=== PATIENT | female | born 1940 | race African-American/Black ===

== ENCOUNTER 2023-03-04 17:28 | Observation (INO) | payer MEDICARE, MEDICAID, SELFPAY ==
[2023-03-04] VITALS (16 sets, daily range): BP systolic 147–239; BP diastolic 72–110; PULSE 80–93; RESP 16–18; TEMP 36.5–36.6; O2SAT 97–100; BMI 40.3; BMI 43.7
--- NOTE | ~2023-03-04 | XR_ITS ---
EXAMINATION: XR chest 1V DATE: 03/04/2023 20:40 INDICATION: Fall TECHNIQUE: frontal view of the chest was obtained. COMPARISON: None FINDINGS: The lungs are clear with no focal airspace opacities, pulmonary edema, pleural effusion or pneumothor ax. Cardiomegaly. Moderate-sized hiatal hernia. Mild lower thoracic levocurvature with at least mild spondylosis. IMPRESSION: 1. No acute cardiopulmonary disease. 2. Cardiomegaly. 3. Moderate-sized hiatal hernia. Reviewed, dictated and finalized at location A.
--- NOTE | ~2023-03-04 | CT_ITS ---
EXAMINATION: CT knee RT wo con DATE: 03/04/2023 20:35 INDICATION: Right knee pain and inability to bear weight post fall. TECHNIQUE: High resolution computed tomography (CT) of the right knee was performed without intraveno us contrast. Additional sagittal and coronal reconstructions were performed. Automated exposure contr ol and iterative reconstruction technique were employed. The dose-length product was 512.46 mGy-cm. COMPARISON: Right knee radiographs dated 03/04/2023 FINDINGS: Slight genu varus resulting from the severe joint space narrowing in the medial compartment with some remodeling of the articular surface of the medial tibial plateau. No traumatic malalignment. No evid ent fracture. There is moderate osteoarthritis of the lateral compartment and large marginal ossified swelling the patella and moderate size marginal osteophytes along the trochlea consistent with at le ast mild osteoarthritis. Moderate-sized hemarthrosis at the suprapatellar pouch but without evident l ayering fat component to suggest an occult intra-articular fracture. Subcutaneous edema about the kd f and visualized proximal calf. IMPRESSION: 1. Moderate-sized right knee hemarthrosis but without evident fracture or layering fat level to sugge st an occult intra-articular fracture. 2. 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 Reviewed, dictated and finalized at location A. IMPRESSION: 1. Moderate-sized right knee hemarthrosis but without evident fracture or layer ing fat level to suggest an occult intra-articular fracture. 2. Advanced medial compartment predominant tricompartmental osteoarthritis at t he right knee.
--- NOTE | ~2023-03-04 | XR_ITS ---
EXAMINATION: XR ankle RT 2V DATE: 03/04/2023 18:29 INDICATION: Right ankle injury post fall TECHNIQUE: Anteroposterior and lateral views of the right ankle were obtained. COMPARISON: None. FINDINGS: Alignment is normal. No fracture. Profiled joint spaces appear relatively preserved. Small plantar ca lcaneal spur. Prominent soft tissue swelling about the ankle, visualized distal lower leg and extendi ng over the dorsum of the foot. No ankle joint effusion. IMPRESSION: 1. No right ankle joint effusion or acute osseous abnormality. Reviewed, dictated and finalized at location A.
--- NOTE | ~2023-03-04 | XR_ITS ---
EXAMINATION: XR knee RT 3V DATE: 03/04/2023 18:30 INDICATION: Right knee injury post fall TECHNIQUE: Anteroposterior, oblique and crosstable lateral views of the right knee were obtained COMPARISON: None. FINDINGS: Alignment is normal. No fracture. There is severe joint space narrowing at the medial compartment wi th remodeling of the articular surface of the medial tibial plateau. There is also some joint space n arrowing at the medial side of the lateral compartment. Large marginal osteophytes along the patella. There is a moderate sized right knee joint effusion without layering lipohemarthrosis. Subcutaneous edema about the knee and visualized proximal to mid calf. IMPRESSION: 1. Moderate-sized right knee joint effusion without evident acute osseous abnormality. 2. Tricompartmental osteoarthritis, advanced medial compartment. Reviewed, dictated and finalized at location A. IMPRESSION: 1. Moderate-sized right knee joint effusion without evident acute osseous abnor mality. 2. Tricompartmental osteoarthritis, advanced medial compartment.
--- NOTE | 2023-03-04 20:21 | ECG_ITS ---
Measurements Intervals [place] Rate: 91 P: 56 MA: 151 QRS: -17 QRSD: 81 T: -15 QT: 353 QTc: 436 Interpretive Statements SINUS RHYTHM POSSIBLE RIGHT ATRIAL ENLARGEMENT LEFT VENTRICULAR HYPERTROPHY AND ST-T CHANGE BORDERLINE T WAVE ABNORMALITY- ANTEROLAT/INF LEADS BASELINE ARTIFACT- I, II, AVR, AVL, AVF, V2-V6 BORDERLINE ECG NO PREVIOUS ECG AVAILABLE FOR COMPARISON Electronically Signed On 03-05-2023 6:55:10 CDT by Poncho Mata D.O.
[2023-03-04] MEDS: HYDROcodone/acetaminophen (*CRX) 5-325 MG TABLET 2 TAB PO (20:44)
[2023-03-04 20:55] LABS: Glucose Point of Care 92 mg/dl (65-105)
[2023-03-04 21:06] LABS: Basophils Absolute Auto 0.1 K/mm3 (0.0-0.1); Basophils Percent Auto 0.7 % (0.2-1.2); Eosinophils Absolute Auto 0.1 K/mm3 (0-0.3); Eosinophils Percent Auto 1.6 % (0-4.4); Hematocrit 37.3 % (37.0-47.0); Hemoglobin 11.7 g/dL (12.0-15.0); Immature Granulocyte Absolute 0.04 K/mm3 (0.00-0.031); Immature Granulocyte Percent A 0.5 % (0-0.5); Lymphocytes Absolute Auto 1.73 K/mm3 (0.9-3.2); Lymphocytes Percent Auto 21.2 % (18.3-44.2); Mean Corpuscular HGB Conc 31.4 g/dl (32-36); Mean Corpuscular Hemoglobin 31.9 pg (26-34); Mean Corpuscular Volume 101.6 fl (80-100); Mean Platelet Volume 10.2 fl (7.4-10.4); Monocytes Percent Auto 12.2 % (2.6-8.5); Neutrophils Absolute Auto 5.2 K/mm3 (1.3-6.7); Neutrophils Percent Auto 63.8 % (45.5-73.1); Nucleated Red Blood Cells Perc 0.4 % (0.0-0.2); Platelet Count Result 268 k/mm3 (150-375); Red Blood Count 3.67 M/mm3 (4.2-5.4); Red Cell Distribution Width 15.5 % (11.5-14.5); White Blood Count 8.2 K/mm3 (4.5-10.0)
[2023-03-04 21:20] LABS: Anion Gap 8 mmol/L (8-16); Blood Urea Nitrogen 15 mg/dL (7-17); Carbon Dioxide 27 mmol/L (22-30); Chloride 105 mmol/L (98-107); Estimated CRCL calculation 52 ml/min; Estimated Glomerular Filt Rate > 60; Glucose 103 mg/dL (65-110); Potassium 4.6 mmol/L (3.4-5.0); Sodium 140 mmol/L (137-145)
--- NOTE | 2023-03-04 21:21 | ED.GENADULT ---
HPI - General Adult General Chief complaint: Extremity Injury, Lower Stated complaint: fall with right knee pain - bilateral LE edema Time Seen by Provider: 03/04/23 19:30 History of Present Illness HPI narrative: This is an 82-year-old female presenting ED with chief complaint of right knee pain. The patient walks with a walker at home. She was trying to sit on her sofa when she sat down too soon. She ended up falling to her knees and then rolling over onto her buttocks. She has been having pain in her right knee since then. She has been unable to bear weight. She denies head trauma or any other injuries. No other physical complaints. Patient lives alone and is unable to complete her activities of daily living due to pain. Related Data Allergies Allergy/AdvReac Type Severity Reaction Status Date / Time azithromycin Allergy Anaphylaxis Verified 03/04/23 19:40 Penicillins Allergy Hives Verified 03/04/23 19:40 COUNT INCLUDES THE [facility] Past Medical History Medical History Gout HTN (hypertension) Obesity Exam Narrative: APPEARANCE: No apparent distress. Head: atraumatic. EYES: EOMI, NOSE: Atraumatic NECK: Trachea midline RESPIRATORY: No increased rate of breathing , CTAB CARDIOVASCULAR: RRR, ABDOMINAL: obese, soft, nontender MUSCULOSKELETAl: Physical exam lower extremities is limited due to body habitus. Patient has pain on active and passive range of motion of the knee. Possibly a small effusion. No overlying skin changes. neurovascularly intact distal to the knee. NEURO: Alert. Moving 4/4 extremities SKIN:: Warm, dry. Normal color PSYCHIATRIC: Normal affect Course Vital Signs Vital signs: Vital Signs Temperature 97.7 F 03/04/23 17:54 Pulse Rate 93 03/04/23 17:54 Respiratory Rate 18 03/04/23 17:54 Blood Pressure 147/86 H 03/04/23 17:54 Pulse Oximetry 98 03/04/23 17:54 Oxygen Delivery Room Air 03/04/23 17:54 Temperature 97.7 F 03/04/23 17:54 Pulse Rate 93 03/04/23 17:54 Respiratory Rate 16 03/04/23 21:00 Blood Pressure 239/110 H 03/04/23 20:47 Pulse Oximetry 97 03/04/23 20:45 Oxygen Delivery Room Air 03/04/23 17:54 Medical Decision Making [facility] Narrative Medical decision making narrative: -Course: 82-year-old female presenting with knee pain after a fall. Initial x-ray did not reveal any fractures. CT was ordered to evaluate for occult fracture but was negative. There is a small effusion. Patient is unable to bear weight and lives at home alone. She will be omitted for PT OT and possible rehab placement. -DDX includes but is not limited to: Osseous injury, soft tissue injury, knee effusion, inability to ambulate -Co-morbidities complicating care: obesity, impaired mobility, hypertension, gout -Social determinants of health: retired, lives alone -Hx from independent Sources: family at bedside -Independent interpretation of studies: laboratory studies within normal limits. X-ray and CT were negative for fracture but did show a joint effusion. Viral swabs negative. Chest x-ray showed cardiomegaly but no respiratory distress or dyspnea at this time. Independent EKG interpretation: Rhythm [sinus], Rate [91], [place] -[normal], [place] -[normal], QRS [narrow], QTC [normal], T waves -[negative for concerning inversions], ST Segments - [Negative for concerning elevations] Final interpretations: [Normal Sinus Rhythm] -Discussion of Management/Consultants: Dr. Be-hospitalist Interventions: [place] 5mg x 2 -Shared decision making / Disposition: discharge Vital Signs Vital Signs: Vital Signs Temperature 97.7 F 03/04/23 17:54 Pulse Rate 93 03/04/23 17:54 Respiratory Rate 18 03/04/23 17:54 Blood Pressure 147/86 H 03/04/23 17:54 Pulse Oximetry 98 03/04/23 17:54 Oxygen Delivery Room Air 03/04/23 17:54 Temperature 97.7 F 03/04/23 17:54 Pulse Rate 93 03/04/23 17:54 Respiratory Rate 16
[2023-03-04 21:41] LABS: Influenza A QL RT-PCR Negative (Negative); Influenza B QL RT-PCR Negative (Negative); RSV RNA, RT-PCR Negative (Negative); SARS-CoV-2 RNA PCR Negative (Negative)
--- NOTE | 2023-03-04 21:57 | PM.IMHP ---
H&P: HPI History of Present Illness Date/Time: 03/04/23 21:57 Chief Complaint: Fall Narrative: This is an 82-year-old female with past medical history significant for hypertension, obesity, patient was brought to the emergency room after she had a mechanical fall at home ground level with trauma to the right knee unable to bear weight on it. Patient has been in her usual state of health denies any loss of consciousness. Patient denies any syncope, near syncope, lightheadedness, dizziness, nausea, vomiting, abdominal pain, diarrhea, shortness of breath, cough, leg swelling, sputum production, recurrent falls. Preliminary workup was significant for large knee effusion. Patient has been admitted for further evaluation management and treatment. EXAMINATION: CT knee RT wo con DATE: 03/04/2023 20:35 INDICATION: Right knee pain and inability to bear weight post fall. TECHNIQUE: High resolution computed tomography (CT) of the right knee was performed without intravenous contrast. Additional sagittal and coronal reconstructions were performed. Automated exposure control and iterative reconstruction technique were employed. The dose-length product was 512.46 mGy-cm. COMPARISON: Right knee radiographs dated 03/04/2023 FINDINGS: Slight genu varus resulting from the severe joint space narrowing in the medial compartment with some remodeling of the articular surface of the medial tibial plateau. No traumatic malalignment. No evident fracture. There is moderate osteoarthritis of the lateral compartment and large marginal ossified swelling the patella and moderate size marginal osteophytes along the trochlea consistent with at least mild osteoarthritis. Moderate-sized hemarthrosis at the suprapatellar pouch but without evident layering fat component to suggest an occult intra-articular fracture. Subcutaneous edema about the calf and visualized proximal calf. IMPRESSION: 1. Moderate-sized right knee hemarthrosis but without evident fracture or layering fat level to suggest an occult intra-articular fracture. 2. 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 Review of Systems Review of Systems: Fall Constitutional: Constitutional: Denies chills, Denies fatigue, Denies fever(s), Denies frequent falls, Denies malaise, Denies night sweats and Denies weakness Eyes: Eyes: Denies change in vision ENT: Denies dysphagia, Denies vertigo, Denies dizziness, Denies odynophagia and Denies disequilibrium Cardiovascular: Cardiovascular: Denies chest pain, Denies leg edema, Denies radiating jaw, neck or arm pain and Denies palpitations Respiratory: Respiratory: Denies chest congestion, Denies cough and Denies dyspnea Gastrointestinal: Gastrointestinal: Denies abdominal pain, Denies dyspepsia, Denies heartburn, Denies diarrhea and Denies vomiting Genitourinary: Genitourinary: Denies dysuria Musculoskeletal: Musculoskeletal: Reports arthralgias ( knee), Reports joint swelling and Reports limited range of motion Integumentary/Breasts: Skin/Breast: Denies rash Neurologic: Denies focal weakness and Denies Sensory deficit (Neuro) Psychiatric: Psychiatric: Reports no additional psychiatric complaints and Reports as per HPI Endocrine: Endocrine: Denies cold intolerance, Denies fatigue, Denies flushing, Denies heat intolerance, Denies polyphagia, Denies polydipsia and Denies palpitations Hematologic/Lymphatic: Hematologic/Lymphatic: Reports no additional hematologic/lymphatic complaints and Reports as per HPI Allergic/Immunologic: Allergic/Immunologic: Reports no additional allergic/immunologic complaints and Reports as per HPI PMFSH Past Medical History Medical History Gout HTN (hypertension) Obesity Family History Family History (Updated 03/04/23 @ 23:22 by Ac Covington RN) Father Hypertension Cerebrovascular accident Mother Hypertension
--- NOTE | 2023-03-04 22:14 | PC.NURSE ---
This RN attempted to get a urine specimen from pt. Pt was unable to provide a sample into the hat this rn and refinery technician provided for her. EDp made aware that speciman was not collected.
--- NOTE | 2023-03-04 23:04 | ADMGEN ---
This patient, Henna Hogan, was admitted to Medical Room 244-. Patient/family oriented to hospital policies and general routines including ID bracelet, bed and alarms, visiting hours, pain management, procedures, bathroom and other care routines, personal items, smoking policy, room service/diet, and visiting hours. Information on how to activate the Rapid Response Team has been discussed. Patient/Family are encouraged to report perceived risks to care and to ask questions if they do not understand what they are told or what they should do.
[2023-03-05 00:48] LABS: Appearance Urine Cloudy (Clear); Bacteria Urine Rare /hpf; Bilirubin Urine Negative (Negative); Blood Urine Negative (Negative); Color Urine Yellow (Yellow); Glucose Urine UA Negative (Negative); Ketones Urine Negative (Negative); Leukocyte Esterase Ur Negative LEU/UL (Negative); Need Manual Microscopic Reviewed; Nitrate Urine Negative (Negative); Non Pathogenic Casts 0-2; Protein Urine Negative (Negative); RBC Urine 0-2 /hpf (0-2); Specific Grav Ur 1.009 (1.001-1.035); Squamous Epithelial Cell Urine Occasional /hpf (Few); Urobilinogen Urine 0.2 mg/dL (<2.0); WBC Urine 0-5 /hpf
[2023-03-05 00:56] LABS: Add Urine Microscopic? YES
[2023-03-05 02:00] VITALS: BP 130/71; PULSE 85; RESP 20; TEMP 35.9; O2SAT 98
[2023-03-05 04:42] VITALS: BP 148/76; PULSE 83; RESP 16; TEMP 36.3; O2SAT 100
[2023-03-05] MEDS: GABAPENTIN 100 MG CAPSULE PO ×3 (08:18→16:37)
[2023-03-05] MEDS: ATORVASTATIN 40 MG TABLET PO (08:18)
[2023-03-05] MEDS: PANTOPRAZOLE 40 MG TABLET PO (08:18)
[2023-03-05] MEDS: allopurinoL 100 MG TABLET PO (08:18)
[2023-03-05] MEDS: dilTIAZem HCL 30 MG TABLET PO (08:18)
[2023-03-05] MEDS: HEPARIN SODIUM 5,000 UNITS/ML VIAL 5000 UNITS SUB-Q ×2 (08:19→21:40)
--- NOTE | 2023-03-05 08:53 | PM.IMPN ---
Progress Note: A&P Assessment and Plan (1) Fall: Code(s): W19.XXXA - Unspecified fall, initial encounter Status: Acute Assessment and Plan: Fall precautions Monitor closely Physical therapy when stable (2) Knee pain: Code(s): M25.569 - Pain in unspecified knee Status: Acute Assessment and Plan: Tylenol p.r.n. Ortho consult (3) Impaired ambulation: Code(s): R26.2 - Difficulty in walking, not elsewhere classified Status: Acute Assessment and Plan: PT OT (4) HTN (hypertension): Code(s): I10 - Essential (primary) hypertension Status: Acute Assessment and Plan: resume home meds Stable on current meds Subjective Date/time seen: 03/05/23 08:53 Interval history: Patient was seen during morning rounds today. Complain of his right knee pain. No shortness of breath or chest pain. No abdominal pain, nausea, no vomiting. Mood stable. Review of Systems Review of Systems: Fall All systems reviewed & are unremarkable except as noted in HPI and below (the history and physical exam.) Constitutional: Constitutional: Denies chills, Denies fatigue, Denies fever(s), Denies frequent falls, Denies malaise, Denies night sweats and Denies weakness Eyes: Eyes: Denies change in vision ENT: Denies dysphagia, Denies vertigo, Denies dizziness, Denies odynophagia and Denies disequilibrium Cardiovascular: Cardiovascular: Denies chest pain, Denies leg edema, Denies radiating jaw, neck or arm pain, Denies palpitations and Denies dyspnea Respiratory: Respiratory: Denies chest congestion, Denies cough and Denies dyspnea Gastrointestinal: Gastrointestinal: Denies abdominal pain, Denies dysphagia, Denies dyspepsia, Denies heartburn, Denies diarrhea, Denies odynophagia and Denies vomiting Genitourinary: Genitourinary: Denies dysuria Musculoskeletal: Musculoskeletal: Reports arthralgias ( knee), Reports joint swelling and Reports limited range of motion Integumentary/Breasts: Skin/Breast: Denies rash Neurologic: Denies vertigo, Denies dizziness, Denies frequent falls, Denies focal weakness, Denies Sensory deficit (Neuro), Denies disequilibrium and Denies weakness Psychiatric: Psychiatric: Reports no additional psychiatric complaints and Reports as per HPI Endocrine: Endocrine: Denies cold intolerance, Denies fatigue, Denies flushing, Denies heat intolerance, Denies polyphagia, Denies polydipsia and Denies palpitations Hematologic/Lymphatic: Hematologic/Lymphatic: Reports no additional hematologic/lymphatic complaints and Reports as per HPI Allergic/Immunologic: Allergic/Immunologic: Reports no additional allergic/immunologic complaints and Reports as per HPI Exam Narrative: laying in bed comfortably Const: General: comfortable, no acute distress, well developed, alert, awake, average body habitus and obese Nutritional Appearance: average body habitus and obese Orientation/consciousness: patient oriented x3 HENMT: Head: normal to inspection, normocephalic and atraumatic Ears: hearing grossly normal bilaterally Face/Nose/Sinus: normal facial exam Face and sinus: normal facial exam Eyes: General: appearance normal, both eyes and all related structures Pupils: Equal, round and reactive pupils present EOM: EOMs intact bilaterally Neck: Neck: full ROM, no lymphadenopathy and no JVD Thyroid: thyroid normal Lymphatic: no lymphadenopathy noted Resp: Effort & Inspection: normal respiratory effort and able to speak in complete sentences Auscultation: clear to auscultation bilaterally Cardio: Jugular venous distension: no JVD Rate: regular rate Rhythm: regular rhythm Heart sounds: S1 normal heart sound present and S2 normal heart sound present : General: Yes deferred Skin: Rashes: no rashes Wounds: no wounds Neuro: General: patient oriented x3, CN's II-XI intact bilaterally and Unable to assess gait Cranial nerves: Yes CN's II-XII intact b
[2023-03-05 08:57] LABS: Glucose Point of Care 77 mg/dl (65-105)
[2023-03-05 11:55] LABS: Glucose Point of Care 101 mg/dl (65-105)
[2023-03-05 14:40] VITALS: BP 111/45; PULSE 78; RESP 16; O2SAT 100
[2023-03-05 15:08] LABS: Glucose Point of Care 123 mg/dl (65-105)
[2023-03-05 20:11] VITALS: BP 110/75; PULSE 95; RESP 16; TEMP 36.9; O2SAT 99
[2023-03-05] MEDS: ACETAMINOPHEN 500 MG TABLET 1000 MG PO (21:35)
[2023-03-05 23:16] VITALS: O2SAT 99
[2023-03-06] VITALS (9 sets, daily range): BP systolic 101–157; BP diastolic 67–104; PULSE 85–128; RESP 16–18; TEMP 36.7–36.9; O2SAT 98–100
--- NOTE | 2023-03-06 07:24 | PM.IMPN ---
Progress Note: A&P Assessment and Plan (1) Fall: Code(s): W19.XXXA - Unspecified fall, initial encounter Status: Acute Assessment and Plan: Fall precautions Physical therapy when stable (2) Knee pain: Code(s): M25.569 - Pain in unspecified knee Status: Acute Assessment and Plan: Ortho consultation in place. Imaging R knee: Moderate-sized right knee hemarthrosis but without evident fracture, tricompartmental OA. PT ordered. (3) Impaired ambulation: Code(s): R26.2 - Difficulty in walking, not elsewhere classified Status: Acute Assessment and Plan: PT/OT ordered. I have concerns for her ability to manage self care at home. Likely will require a short term rehabiliatory placement to complete therapy courses. Care coordination order placed to assist. (4) HTN (hypertension): Code(s): I10 - Essential (primary) hypertension Status: Acute Assessment and Plan: / this am. Will check orthostats prior to getting up today. Stable on current meds Plan Patient may not do well at home alone with current deficits. Consider placement for rehabilitation prior to home. Awaiting care coordination input. Time Spent With Patient Time: >35 minutes. Subjective Date/time seen: 03/06/23 07:24 Interval history: Henna states her pain is improved when resting but does still cause significant pain when moving around. Denies new complaints concerns. Review of Systems Review of Systems: Negative ROS across 10 systems unless otherwise mentioned. Exam Narrative: GENERAL APPEARANCE: Appears to be in no acute distress. HEAD: normocephalic atraumatic EYES: PERRL, EOMI. Vision grossly intact. ENT: Hearing grossly intact, no nasal discharge NECK: Neck supple, trachea midline. CARDIAC: Normal S1/S2. Rhythm is regular. No murmurs, rubs, or gallops. No cyanosis or pallor. Extremities are warm and well perfused. LUNGS: Clear to auscultation without rales, rhonchi, wheezing or diminished breath sounds. Respirations even and unlabored. ABDOMEN: Obese. BS positive x 4 quadrants. Soft, nondistended, nontender. No guarding or rebound. MSK: Right knee with pain to mild palpation over the tibial plateau PERIPHERAL VASCULAR: Peripheral pulses palpable. Normal perfusion, cap refill <2 seconds. No edema. NEURO: Follows commands. No focal deficits. SKIN: [place] without lesions or eruptions. PSYCH: Stable, no paranoia or delusional thinking. Objective Data Vital Signs Vital Signs: Vital Signs - 24 hr 03/05/23 08:08 03/05/23 14:24 03/05/23 14:40 Temperature Pulse Rate 78 Respiratory Rate 16 Blood Pressure 111/45 L Pulse Oximetry 100 Oxygen Delivery Room Air Room Air 03/05/23 20:11 03/05/23 23:16 03/06/23 04:42 Temperature 98.4 F 98.1 F Pulse Rate 95 85 Respiratory Rate 16 16 Blood Pressure 110/75 101/73 Pulse Oximetry 99 99 98 Oxygen Delivery Room Air Intake/Output Intake/Output: Intake & Output 03/03/23 03/04/23 03/05/23 03/06/23 23:59 23:59 23:59 23:59 Intake Total 1030 200 Output Total 1350 Balance -320 200 Meds/Results Medications: Active Medications Generic Name Dose Route Start Last Admin Trade Name Freq PRN Reason Stop Dose Admin Acetaminophen 1,000 mg 03/05/23 01:27 03/05/23 21:35 Acetaminophen 500 Mg Tablet PO 1,000 mg Q6H PRN Administration Mild Pain (1-3) or Fever Allopurinol 100 mg 03/05/23 08:00 03/05/23 08:18 Allopurinol 100 Mg Tablet PO 100 mg DAILY@0800 DARCIE Administration Atorvastatin Calcium 40 mg 03/05/23 09:00 03/05/23 08:18 Atorvastatin 40 Mg Tablet PO 40 mg DAILY DARCIE Administration Diltiazem HCl 30 mg 03/05/23 09:00 03/05/23 08:18 Diltiazem Hcl 30 Mg Tablet PO 30 mg DAILY DARCIE Administration Gabapentin 100 mg 03/05/23 09:00 03/05/23 16:37 Gabapentin 100 Mg Capsule PO 100 mg TID DARCIE Administration Heparin Sodium (Porcine)
[2023-03-06] MEDS: allopurinoL 100 MG TABLET PO (09:03)
[2023-03-06] MEDS: ATORVASTATIN 40 MG TABLET PO (09:03)
[2023-03-06] MEDS: GABAPENTIN 100 MG CAPSULE PO ×3 (09:03→16:48)
[2023-03-06] MEDS: HEPARIN SODIUM 5,000 UNITS/ML VIAL 5000 UNITS SUB-Q ×2 (09:04→21:22)
[2023-03-06] MEDS: PANTOPRAZOLE 40 MG TABLET PO (09:04)
[2023-03-06] MEDS: ACETAMINOPHEN 500 MG TABLET 1000 MG PO (12:15)
[2023-03-06 14:23] LABS: Glucose Point of Care 123 mg/dl (65-105)
--- NOTE | 2023-03-06 14:41 | ECG_ITS ---
Measurements Intervals [place] Rate: 87 P: 52 MN: 141 QRS: -16 QRSD: 86 T: 120 QT: 361 QTc: 436 Interpretive Statements SINUS RHYTHM LEFT VENTRICULAR HYPERTROPHY AND ST-T CHANGE BORDERLINE T WAVE ABNORMALITY- DIFFUSE LEADS BORDERLINE ECG COMPARED TO ECG 03/04/2023 20:51:28 NO SIGNIFICANT CHANGES Electronically Signed On 03-06-2023 19:37:48 CDT by Poncho Mata D.O.
[2023-03-07] VITALS (11 sets, daily range): BP systolic 136–154; BP diastolic 53–86; PULSE 79–94; RESP 14–19; TEMP 36.7–36.8; O2SAT 95–99
--- NOTE | 2023-03-07 | ECHO_ITS ---
Patient Info Name: Henna Hogan Age: 82 years : 1940 Gender: Female Ht: 65 in Wt: 262 lbs BSA: 2.40 m2 HR: 80 bpm BP: 154 / 86 mmHg Heart Rhythm: Sinus Rhythm Technical Quality: Fair Exam Date: 03/07/2023 10:17 AM [facility] Patient Status: Inpatient Admit Date: 03/04/2023 Staff Ordering Physician: Nasir Flores APRN Lsat Instructor: Sailaja Guardado RDCS Attending Provider: Gabbie Be MD Referring Physician: Mark BELLO; Exam Type: CA echo doppler color flow Study Info Indications - syncope Complete two-dimensional, color flow and Doppler transthoracic echocardiogram is performed. Summary 1. Complete two-dimensional, color flow and Doppler transthoracic echocardiogram is performed. 2. Technically difficult exam because of obesity. 3. Sclerotic aortic valve which is not stenotic. 4. Left ventricular hypertrophy with good systolic function and grade 1 diastolic noncompliance. 5. Modest left atrial enlargement. Left Ventricle Left ventricular chamber dimension is normal. Left ventricular systolic function is normal, estimated at 60-65%. There is mild concentric increased left ventricular wall thickness. The left ventricular diastolic function is grade I diastolic dysfunction. Right Ventricle Right ventricular chamber dimension is normal. Left Atria Left atrial chamber dimension is mildly enlarged. Right Atria Right atrial chamber dimension is normal. Aortic Valve The aortic valve is not well visualized. There is mild aortic valve sclerosis. There is no aortic valve stenosis. Pulmonic Valve The pulmonic valve is not well visualized. Mitral Valve The mitral valve has normal leaflets. Tricuspid Valve The tricuspid valve leaflets are not well visualized. Pericardium/Pleural The pericardium appears normal. Aorta The aortic root size at the sinus of Valsalva is normal. Left Ventricular Outflow Tract Name Value Normal LVOT 2D LVOT Diameter 2.0 cm LVOT Doppler LVOT Peak Gradient 5 mmHg LVOT Mean Gradient 3 mmHg LVOT VTI 22 cm LVOT VTI/AV VTI Ratio 0.9 LVOT Stroke Volume 66 ml LVOT CO 13.7 l/min LVOT CI 5.7 l/min/m2 Pulmonic Valve Name Value Normal PV Doppler PV Peak Gradient 3 mmHg Mitral Valve Name Value Normal MV Doppler MV Decel [place] 208 cm/s2 MV PHT 63 ms MV Area (PHT) 3.5 cm2 4.0-5.0
[2023-03-07] MEDS: allopurinoL 100 MG TABLET PO (09:01)
[2023-03-07] MEDS: PANTOPRAZOLE 40 MG TABLET PO (09:01)
[2023-03-07] MEDS: ATORVASTATIN 40 MG TABLET PO (09:01)
[2023-03-07] MEDS: HEPARIN SODIUM 5,000 UNITS/ML VIAL 5000 UNITS SUB-Q ×2 (09:01→20:27)
[2023-03-07] MEDS: GABAPENTIN 100 MG CAPSULE PO ×3 (09:01→18:19)
[2023-03-07] MEDS: dilTIAZem HCL 30 MG TABLET PO (09:01)
[2023-03-07] MEDS: ACETAMINOPHEN 500 MG TABLET 1000 MG PO ×2 (09:07→20:26)
--- NOTE | 2023-03-07 15:15 | P.PNIM_ITS ---
Progress Note: A&P Assessment and Plan (1) Near syncope: Code(s): R55 - Syncope and collapse Status: Acute Assessment and Plan: * Appears to have had a second episode while in the hospital * Orthostatic BP is laying 120/82, Sitting 138/104, Standing 138/76 * Chest xray is stable * Repeat EKG with no changes noted * Most likely vasovagal * Consider carotid doppler * Educate about slow movements and transition as it happens from the sit to stand * Activity up with assistance (2) Fall: Qualifiers: Encounter type: initial encounter Qualified Code(s): W19.XXXA - Unspecified fall, initial encounter Code(s): W19.XXXA - Unspecified fall, initial encounter Status: Acute Assessment and Plan: * Presented after a fall at home with knee trauma for sitting down too soon * PT/OT consulted * Fall precautions * up with assistance (3) Knee pain: Qualifiers: Chronicity: acute Laterality: right Qualified Code(s): M25.561 - Pain in right knee Code(s): M25.569 - Pain in unspecified knee Status: Acute Assessment and Plan: * Secondary to fall * CT of the right knee shows moderate sized right knee hemarthrosis without fracture * Ortho consulted * Weight bearing as tolerated * Continue with pain medications . (4) Impaired ambulation: Code(s): R26.2 - Difficulty in walking, not elsewhere classified Status: Acute Assessment and Plan: * PT/OT ordered. * Concerns for her ability to manage self care at home. * Consider SNF placement for rehab * Continue to work with patient (5) HTN (hypertension): Qualifiers: Hypertension type: primary hypertension Qualified Code(s): I10 - Essential (primary) hypertension Code(s): I10 - Essential (primary) hypertension Status: Acute Assessment and Plan: * Current BP is 154/86 * Continue home diltiazem 30mg PO Daily * Trend BP * Adjust therapy as indicated (6) Knee effusion, right: Code(s): M25.461 - Effusion, right knee Status: Acute Assessment and Plan: * Seen on the xray * Awaiting further recommendations from ortho * Continue to trend symptoms * Could possibly need drained Time Spent With Patient Time: 42 minutes Time with patient: Greater than 35 minutes Subjective Date/time seen: 03/07/230 Interval history: 09/11/23 1530 patient is lying in bed. Patient states that her knee is better than it was. She also stated that she was able stand today. She denies any current syncopal type feelings. Currently patient is doing okay. Still waiting for Orthopedics see the patient. 03/06/23 0724 Henna states her pain is improved when resting but does still cause significant pain when moving around. Denies new complaints concerns. 03/05/23? 08:53 Patient was seen during morning rounds today. Complain of his right knee pain. No shortness of breath or chest pain. No abdominal pain, nausea, no vomiting. Mood stable. 03/04/23? 21:57 ?This is an 82-year-old female with past medical history significant for hypertension, obesity, patient was brought to the emergency room after she had a mechanical fall at home ground level with trauma to the right
--- NOTE | 2023-03-07 15:15 | PM.IMPN ---
Progress Note: A&P Assessment and Plan (1) Near syncope: Code(s): R55 - Syncope and collapse Status: Acute Assessment and Plan: Appears to have had a second episode while in the hospital Orthostatic BP is laying 120/82, Sitting 138/104, Standing 138/76 Chest xray is stable Repeat EKG with no changes noted Most likely vasovagal Consider carotid doppler Educate about slow movements and transition as it happens from the sit to stand Activity up with assistance (2) Fall: Qualifiers: Encounter type: initial encounter Qualified Code(s): W19.XXXA - Unspecified fall, initial encounter Code(s): W19.XXXA - Unspecified fall, initial encounter Status: Acute Assessment and Plan: Presented after a fall at home with knee trauma for sitting down too soon PT/OT consulted Fall precautions up with assistance (3) Knee pain: Qualifiers: Chronicity: acute Laterality: right Qualified Code(s): M25.561 - Pain in right knee Code(s): M25.569 - Pain in unspecified knee Status: Acute Assessment and Plan: Secondary to fall CT of the right knee shows moderate sized right knee hemarthrosis without fracture Ortho consulted Weight bearing as tolerated Continue with pain medications . (4) Impaired ambulation: Code(s): R26.2 - Difficulty in walking, not elsewhere classified Status: Acute Assessment and Plan: PT/OT ordered. Concerns for her ability to manage self care at home. Consider SNF placement for rehab Continue to work with patient (5) HTN (hypertension): Qualifiers: Hypertension type: primary hypertension Qualified Code(s): I10 - Essential (primary) hypertension Code(s): I10 - Essential (primary) hypertension Status: Acute Assessment and Plan: Current BP is 154/86 Continue home diltiazem 30mg PO Daily Trend BP Adjust therapy as indicated (6) Knee effusion, right: Code(s): M25.461 - Effusion, right knee Status: Acute Assessment and Plan: Seen on the xray Awaiting further recommendations from ortho Continue to trend symptoms Could possibly need drained Time Spent With Patient Time: 42 minutes Time with patient: Greater than 35 minutes Subjective Date/time seen: 03/07/23 1530 Interval history: 03/07/23 1530 patient is lying in bed. Patient states that her knee is better than it was. She also stated that she was able stand today. She denies any current syncopal type feelings. Currently patient is doing okay. Still waiting for Orthopedics see the patient. 03/06/23 0724 Henna states her pain is improved when resting but does still cause significant pain when moving around. Denies new complaints concerns. 03/05/23? 08:53 Patient was seen during morning rounds today. Complain of his right knee pain. No shortness of breath or chest pain. No abdominal pain, nausea, no vomiting. Mood stable. 03/04/23? 21:57 ?This is an 82-year-old female with past medical history significant for hypertension, obesity, patient was brought to the emergency room after she had a mechanical fall at home ground level with trauma to the right knee unable to bear weight on it.? Patient has been in her usual state of health denies any loss of consciousness.? Patient denies any syncope, near syncope, lightheadedness, dizziness, nausea, vomiting, abdominal pain, diarrhea, shortness of breath, cough, leg swelling, sputum production, recurrent falls.? Preliminary workup was significant for large knee effusion.? Patient has been admitted for further evaluation management and treatment. Review of Systems Review of Systems: All systems reviewed & are unremarkable except as noted in HPI and below (the history and physical exam.) Exam Narrative: General: well-nou
[2023-03-08] VITALS (10 sets, daily range): BP systolic 146–159; BP diastolic 68–83; PULSE 74–115; RESP 16–18; TEMP 36.6–36.8; O2SAT 98–99
[2023-03-08 06:00] LABS: Basophils Absolute Auto 0.1 K/mm3 (0.0-0.1); Basophils Percent Auto 1.1 % (0.2-1.2); Eosinophils Absolute Auto 0.3 K/mm3 (0-0.3); Eosinophils Percent Auto 6.1 % (0-4.4); Hematocrit 29.5 % (37.0-47.0); Hemoglobin 9.2 g/dL (12.0-15.0); Immature Granulocyte Absolute 0.05 K/mm3 (0.00-0.031); Immature Granulocyte Percent A 0.9 % (0-0.5); Mean Corpuscular HGB Conc 31.2 g/dl (32-36); Mean Corpuscular Hemoglobin 31.7 pg (26-34); Mean Corpuscular Volume 101.7 fl (80-100); Mean Platelet Volume 10.5 fl (7.4-10.4); Monocytes Absolute Auto 0.7 K/mm3 (0.1-0.6); Monocytes Percent Auto 13.6 % (2.6-8.5); Neutrophils Absolute Auto 2.5 K/mm3 (1.3-6.7); Neutrophils Percent Auto 45.3 % (45.5-73.1); Nucleated Red Blood Cells Perc 0.4 % (0.0-0.2); Platelet Count Result 222 k/mm3 (150-375); Red Cell Distribution Width 15.3 % (11.5-14.5); White Blood Count 5.5 K/mm3 (4.5-10.0)
[2023-03-08 06:15] LABS: Alanine Aminotransferase 20 U/L (6-35); Alkaline Phosphatase 87 U/L (38-126); Anion Gap 3 mmol/L (8-16); Aspartate Amino Transferase 29 U/L (14-36); Bilirubin,Total 0.5 mg/dL (0.2-1.3); Blood Urea Nitrogen 15 mg/dL (7-17); Calcium 7.9 mg/dL (8.4-10.2); Carbon Dioxide 29 mmol/L (22-30); Chloride 106 mmol/L (98-107); Estimated CRCL calculation 50 ml/min; Estimated Glomerular Filt Rate > 60; Glucose 90 mg/dL (65-110); Magnesium 2.2 mg/dL (1.6-2.3); Sodium 138 mmol/L (137-145)
[2023-03-08] MEDS: GABAPENTIN 100 MG CAPSULE PO ×3 (08:14→17:22)
[2023-03-08] MEDS: PANTOPRAZOLE 40 MG TABLET PO (08:14)
[2023-03-08] MEDS: HEPARIN SODIUM 5,000 UNITS/ML VIAL 5000 UNITS SUB-Q ×2 (08:14→21:51)
[2023-03-08] MEDS: dilTIAZem HCL 30 MG TABLET PO (08:14)
[2023-03-08] MEDS: ATORVASTATIN 40 MG TABLET PO (08:14)
[2023-03-08] MEDS: allopurinoL 100 MG TABLET PO (08:14)
--- NOTE | 2023-03-08 10:00 | P.PNIM_ITS ---
Progress Note: A&P Assessment and Plan (1) Near syncope: Code(s): R55 - Syncope and collapse Status: Acute Assessment and Plan: * Appears to have had a second episode while in the hospital * Orthostatic BP is laying 120/82, Sitting 138/104, Standing 138/76 * Chest xray is stable * Repeat EKG with no changes noted * Most likely vasovagal * Consider carotid doppler * Educate about slow movements and transition as it happens from the sit to stand * Activity up with assistance * No further episodes noted (2) Fall: Qualifiers: Encounter type: initial encounter Qualified Code(s): W19.XXXA - Unspecified fall, initial encounter Code(s): W19.XXXA - Unspecified fall, initial encounter Status: Acute Assessment and Plan: * Presented after a fall at home with knee trauma for sitting down too soon * PT/OT consulted * Fall precautions * up with assistance (3) Knee pain: Qualifiers: Chronicity: acute Laterality: right Qualified Code(s): M25.561 - Pain in right knee Code(s): M25.569 - Pain in unspecified knee Status: Acute Assessment and Plan: * Secondary to fall * CT of the right knee shows moderate sized right knee hemarthrosis without fracture * Ortho consulted * Weight bearing as tolerated * Continue with pain medications * steroid injection ordered per ortho . (4) Impaired ambulation: Code(s): R26.2 - Difficulty in walking, not elsewhere classified Status: Acute Assessment and Plan: * PT/OT ordered. * Concerns for her ability to manage self care at home. * Consider SNF placement for rehab * Continue to work with patient * Steroid shot should help (5) HTN (hypertension): Qualifiers: Hypertension type: primary hypertension Qualified Code(s): I10 - Essential (primary) hypertension Code(s): I10 - Essential (primary) hypertension Status: Acute Assessment and Plan: * Current BP is 159/81 * Continue home diltiazem 30mg PO Daily * Trend BP * Adjust therapy as indicated (6) Knee effusion, right: Code(s): M25.461 - Effusion, right knee Status: Acute Assessment and Plan: * Seen on the xray * Awaiting further recommendations from ortho * Continue to trend symptoms * Could possibly need drained Time Spent With Patient Time: 38 minutes Time with patient: Greater than 35 minutes Subjective Date/time seen: 03/08/23 10:00 Interval history: 03/08/23 1000 Patient was sitting on the side the bed. Patient is wanting to get injection in her knee for pain control. Currently she denies any chest pain, shortness a breath, nausea, vomiting, diarrhea constipation. Orthopedics is going to come up and do the injection Sometime this evening. Patient should be stable for discharge tomorrow if placement is ready. 03/07/23 1530 patient is lying in bed. Patient states that her knee is better than it was. She also stated that she was able stand today. She denies any current syncopal type feelings. Currently patient is doing okay. Still waiting for Orthopedics see the patient. 03/06/23 0724 Henna states her pain is improved when resting but does still cause significant pain when moving a
--- NOTE | 2023-03-08 10:00 | PM.IMPN ---
Progress Note: A&P Assessment and Plan (1) Near syncope: Code(s): R55 - Syncope and collapse Status: Acute Assessment and Plan: Appears to have had a second episode while in the hospital Orthostatic BP is laying 120/82, Sitting 138/104, Standing 138/76 Chest xray is stable Repeat EKG with no changes noted Most likely vasovagal Consider carotid doppler Educate about slow movements and transition as it happens from the sit to stand Activity up with assistance No further episodes noted (2) Fall: Qualifiers: Encounter type: initial encounter Qualified Code(s): W19.XXXA - Unspecified fall, initial encounter Code(s): W19.XXXA - Unspecified fall, initial encounter Status: Acute Assessment and Plan: Presented after a fall at home with knee trauma for sitting down too soon PT/OT consulted Fall precautions up with assistance (3) Knee pain: Qualifiers: Chronicity: acute Laterality: right Qualified Code(s): M25.561 - Pain in right knee Code(s): M25.569 - Pain in unspecified knee Status: Acute Assessment and Plan: Secondary to fall CT of the right knee shows moderate sized right knee hemarthrosis without fracture Ortho consulted Weight bearing as tolerated Continue with pain medications steroid injection ordered per ortho . (4) Impaired ambulation: Code(s): R26.2 - Difficulty in walking, not elsewhere classified Status: Acute Assessment and Plan: PT/OT ordered. Concerns for her ability to manage self care at home. Consider SNF placement for rehab Continue to work with patient Steroid shot should help (5) HTN (hypertension): Qualifiers: Hypertension type: primary hypertension Qualified Code(s): I10 - Essential (primary) hypertension Code(s): I10 - Essential (primary) hypertension Status: Acute Assessment and Plan: Current BP is 159/81 Continue home diltiazem 30mg PO Daily Trend BP Adjust therapy as indicated (6) Knee effusion, right: Code(s): M25.461 - Effusion, right knee Status: Acute Assessment and Plan: Seen on the xray Awaiting further recommendations from ortho Continue to trend symptoms Could possibly need drained Time Spent With Patient Time: 38 minutes Time with patient: Greater than 35 minutes Subjective Date/time seen: 03/08/23 10:00 Interval history: 03/08/23 1000 Patient was sitting on the side the bed. Patient is wanting to get injection in her knee for pain control. Currently she denies any chest pain, shortness a breath, nausea, vomiting, diarrhea constipation. Orthopedics is going to come up and do the injection Sometime this evening. Patient should be stable for discharge tomorrow if placement is ready. 03/07/23 1530 patient is lying in bed. Patient states that her knee is better than it was. She also stated that she was able stand today. She denies any current syncopal type feelings. Currently patient is doing okay. Still waiting for Orthopedics see the patient. 03/06/23 0724 Henna states her pain is improved when resting but does still cause significant pain when moving around. Denies new complaints concerns. 03/05/23? 08:53 Patient was seen during morning rounds today. Complain of his right knee pain. No shortness of breath or chest pain. No abdominal pain, nausea, no vomiting. Mood stable. 03/04/23? 21:57 ?This is an 82-year-old female with past medical history significant for hypertension, obesity, patient was brought to the emergency room after she had a mechanical fall at home ground level with trauma to the right knee unable to bear weight on it.? Patient has been in her usual state of health denies any loss of consciousness.? Patient denies any syncope, near syncope, l
--- NOTE | 2023-03-08 16:29 | PM.CNOR ---
Assessment and Plan Assessment and plan (1) Knee effusion, right: Code(s): M25.461 - Effusion, right knee Status: Acute (2) Contusion of knee: Code(s): S80.00XA - Contusion of unspecified knee, initial encounter Status: Acute Assessment and Plan: MONICA IS ADMITTED FOR RIGHT KNEE CONTUSION. XRAY AND CT SCAN HAVE BEEN NEGATIVE FOR FRACTURE. SHE DOES HAVE MODERATE DJD. SHE DOES HAVE A LARGE EFFUSION. THE RIGHT KNEE WAS ASPIRATED AND 60cc OF HEMATOMA WERE REMOVED. MARCAINE WAS INJECTED. RECOMMEND CONTINUE PT WBAT. SHE CAN F/U IN THE OFFICE IF HER PAIN RETURNS OR DOES NOT IMPROVE. HISTORY, EXAM AND RADIOGRAPHS REVIEWED WITH THE PATIENT. REFERRING PHYSICIAN RECORDS AND IMAGES REVIEWED. CONDITION, NATURE, ETIOLOGY AND COURSE OF NATURAL HISTORY REVIEWED. CONSERVATIVE AND OPERATIVE TREATMENT OPTIONS REVIEWED WELL THE RISKS AND BENEFITS OF EACH. THE RISKS OF INJECTION WERE REVIEWED INCLUDING BUT NOT LIMITED TO SKIN COLOR CHANGES, ATROPHY OF THE SOFT TISSUE, TENDON OR SOFT TISSUE RUPTURE, JOINT DEGENERATION, HYPER INFLAMMATORY RESPONSE, ALLERGIC REACTION, CONTINUED PAIN OR DYSFUNCTION. SPECIFIC RISKS OF THE PROCEDURE INCLUDING DEEP INFECTION OR SOFT TISSUE RUPTURE OR RECURRENCE OF SYMPTOMS REVIEWED. NO GUARANTEES WERE OFFERED. THE PATIENT UNDERSTANDS THE NEED FOR POSSIBLE FURTHER TREATMENT. 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 SHE DENIES HAVING HAD ANY LOC OR SYNCOPAL EPISODE. SHE DENIES ANY SOB OR CHEST PAIN. SHE HAD INCREASED PAIN AND SWELLING AND WAS ADMITTED TO THE MEDICINE SERVICE AT [facility]. DUE TO HER PAIN AND DIFFICULTY WITH AMBULATION ORTHOPEDIC CONSULT WAS REQUESTED. SHE DENIES ANY OTHER EXTREMITY OR BACK OR NECK PAIN. SHE DENIES ANY FEVER OR CHILLS. HISTORY, EXAM AND RADIOGRAPHS REVIEWED WITH THE PATIENT. REFERRING PHYSICIAN RECORDS AND IMAGES REVIEWED. CONDITION, NATURE, ETIOLOGY AND COURSE OF NATURAL HISTORY REVIEWED. CONSERVATIVE AND OPERATIVE TREATMENT OPTIONS REVIEWED WELL THE RISKS AND BENEFITS OF EACH. [facility] Past Medical History Medical History Gout HTN (hypertension) Obesity Family History Family History Father Hypertension Cerebrovascular accident Mother Hypertension Social History Social History Smoking status: Never smoker Second hand tobacco smoke exposure: Yes Alcohol intake: former Drinks per week: 0 Substance use: never Lack of Transportation: No Lack of Food: Never True Current Housing: I Have Housing Concerned About Future Housing: No Difficulty Paying Gas/Electric Bills: No Difficulty Paying for Meds: No Currently Unemployed: No Education: High School Diploma/GED Difficulty w/ Childcare or Family Care: No Spiritual care concerns: No Meds Home Medications and Allergies Home Medications Medication Instructions Recorded Confirmed Type allopurinol 100 mg tablet 100 mg PO DAILY 03/04/23 03/04/23 History atorvastatin 40 mg tablet 40 mg PO DAILY 03/04/23 03/04/23 History diltiazem HCl 30 mg tablet 30 mg PO DAILY 03/04/23 03/04/23 History gabapentin 100 mg capsule 100 mg PO TID 03/04/23 03/04/23 History (Neurontin) pantoprazole 40 mg tablet,delayed 40 mg PO DAILY 03/04/23 03/04/23 History release Allergies Allergy/AdvReac Type Severity Reaction Status Date / Time azithromycin Allergy Anaphylaxis Verified 03/05/23 00:21 Penicillins Allergy Hives Verified 03/05/23 00:21 Vital Signs Vital Signs - 24 hr 03/07/23 19:43 03/07/23 20:00 03/07/23 20:20 Temperature 36.8 C Pulse Rate 93 93 Respirator
[2023-03-08] MEDS: ACETAMINOPHEN 500 MG TABLET 1000 MG PO ×2 (17:24→23:14)
[2023-03-09] VITALS: PULSE 82
[2023-03-09 04:00] VITALS: PULSE 71
[2023-03-09 05:33] LABS: Basophils Absolute Auto 0.1 K/mm3 (0.0-0.1); Basophils Percent Auto 1.3 % (0.2-1.2); Eosinophils Absolute Auto 0.3 K/mm3 (0-0.3); Eosinophils Percent Auto 4.7 % (0-4.4); Hematocrit 30.5 % (37.0-47.0); Hemoglobin 9.4 g/dL (12.0-15.0); Immature Granulocyte Absolute 0.05 K/mm3 (0.00-0.031); Immature Granulocyte Percent A 0.8 % (0-0.5); Lymphocytes Absolute Auto 1.91 K/mm3 (0.9-3.2); Lymphocytes Percent Auto 31.9 % (18.3-44.2); Mean Corpuscular HGB Conc 30.8 g/dl (32-36); Mean Corpuscular Hemoglobin 31.9 pg (26-34); Mean Corpuscular Volume 103.4 fl (80-100); Mean Platelet Volume 10.5 fl (7.4-10.4); Monocytes Absolute Auto 0.8 K/mm3 (0.1-0.6); Monocytes Percent Auto 13.2 % (2.6-8.5); Neutrophils Absolute Auto 2.9 K/mm3 (1.3-6.7); Neutrophils Percent Auto 48.1 % (45.5-73.1); Nucleated Red Blood Cells Perc 0.5 % (0.0-0.2); Platelet Count Result 232 k/mm3 (150-375); Red Blood Count 2.95 M/mm3 (4.2-5.4); Red Cell Distribution Width 15.1 % (11.5-14.5)
[2023-03-09 05:44] LABS: Alanine Aminotransferase 24 U/L (6-35); Alkaline Phosphatase 86 U/L (38-126); Anion Gap 3 mmol/L (8-16); Aspartate Amino Transferase 38 U/L (14-36); Bilirubin,Total 0.6 mg/dL (0.2-1.3); Blood Urea Nitrogen 17 mg/dL (7-17); Carbon Dioxide 29 mmol/L (22-30); Chloride 106 mmol/L (98-107); Estimated CRCL calculation 50 ml/min; Estimated Glomerular Filt Rate > 60; Glucose 80 mg/dL (65-110); Magnesium 2.3 mg/dL (1.6-2.3); Sodium 138 mmol/L (137-145)
[2023-03-09 05:45] VITALS: BP 131/53; PULSE 80; RESP 18; TEMP 36.4; O2SAT 100
[2023-03-09 08:00] VITALS: PULSE 80
[2023-03-09] MEDS: ATORVASTATIN 40 MG TABLET PO (08:38)
[2023-03-09] MEDS: GABAPENTIN 100 MG CAPSULE PO ×2 (08:38→12:37)
[2023-03-09] MEDS: PANTOPRAZOLE 40 MG TABLET PO (08:38)
[2023-03-09] MEDS: allopurinoL 100 MG TABLET PO (08:38)
[2023-03-09] MEDS: dilTIAZem HCL 30 MG TABLET PO (08:39)
[2023-03-09 08:43] VITALS: RESP 18; O2SAT 100
[2023-03-09] MEDS: HEPARIN SODIUM 5,000 UNITS/ML VIAL 5000 UNITS SUB-Q (08:43)
--- NOTE | 2023-03-09 11:39 | PM.DS ---
DS: Admitting Diagnosis Discharge Date 03/09/23 Admitting Diagnosis Fall, right knee pain DS: Discharge Diagnosis Discharge Diagnosis (1) Near syncope: Code(s): R55 - Syncope and collapse Status: Acute (2) Fall: Qualifiers: Encounter type: initial encounter Qualified Code(s): W19.XXXA - Unspecified fall, initial encounter Code(s): W19.XXXA - Unspecified fall, initial encounter Status: Acute (3) Knee pain: Qualifiers: Chronicity: acute Laterality: right Qualified Code(s): M25.561 - Pain in right knee Code(s): M25.569 - Pain in unspecified knee Status: Acute (4) Impaired ambulation: Code(s): R26.2 - Difficulty in walking, not elsewhere classified Status: Acute (5) HTN (hypertension): Qualifiers: Hypertension type: primary hypertension Qualified Code(s): I10 - Essential (primary) hypertension Code(s): I10 - Essential (primary) hypertension Status: Acute (6) Knee effusion, right: Code(s): M25.461 - Effusion, right knee Status: Acute DS: Summary Hospital Course Hospital Course: this is a 2-year-old female with past medical history of hypertension and morbid obesity the presents to the ED due to ground level fall and right knee pain. She did not have any loss of consciousness, syncope, near syncope, lightheadedness or dizziness. Right knee radiographs revealing a moderate size right knee ang arthrosis without evidence of fracture. PT and OT consulted as well as Orthopedics. Patient was found to have positive orthostatics while in the hospital and she was advised to move very slowly with her movements and transition. She did not have any difficulties after this 1 incident. Orthopedics recommended patient undergo steroid injection of her right knee. Post injection patient did well and knee pain improved. Patient will be discharge to SNF. Labs and vital signs are stable and she is medically clear for discharge at this time Time Spent with Patient Time attestation: Total time spent providing and/or coordinating discharge services: Exam Narrative: GENERAL: Comfortable, no acute distress, morbid obesity HENMT: moist mucous membranes EYES: EOM intact b/l NECK: no lymphadenopathy RESPIRATORY: clear to auscultation CARDIO: RRR GI: soft, nontender, bowel sounds present SKIN: no rashes EXTREMITIES: no edema, redness or tenderness DS: Data Data Completed and Pending Labs on day of discharge: Labs from last 24 hours 03/09/23 03/09/23 05:00 04:50 WBC 6.0 RBC 2.95 L Hgb 9.4 L Hct 30.5 L MCV 103.4 H MCH 31.9 MCHC 30.8 L RDW 15.1 H Plt Count 232 MPV 10.5 H Immature Gran % (Auto) 0.8 H Neut % (Auto) 48.1 Lymph % (Auto) 31.9 [place] % (Auto) 13.2 H Eos % (Auto) 4.7 H Baso % (Auto) 1.3 H Lymph # (Auto) 1.91 [place] # (Auto) 0.8 H Eos # (Auto) 0.3 Baso # (Auto) 0.1 Abs Immat Gran (auto) 0.05 H Absolute Neuts (auto) 2.9 Absolute Nucleated RBC 0.0 Nucleated RBC % 0.5 H Sodium 138 Potassium 4.0 Chloride 106 Carbon Dioxide 29 Anion Gap 3 L BUN 17 Creatinine 1.00 Estim Creat Clear Calc 50 Estimated GFR > 60 Glucose 80 Calcium 8.0 L Magnesium 2.3 Total Bilirubin 0.6 AST 38 H ALT 24 Alkaline Phosphatase 86 Total Protein 6.0 L Albumin 3.0 L Discharge Plan Discharge Attending physician on discharge: Milad Olivas Consulting providers: Naseem Wilde Discharging Clinician: Gail Hayden Patient Disposition: SNF Activity: as tolerated Diet: diabetic Discharge Instructions: Discharge disposition: Take medications as prescribed Monitor blood pressures Avoid social areas, you wear a mask when in social settings Encouraged to continue with yearly vaccinations Return to the emergency department if he developed sudden shortness of breath, chest pain, nausea, vomiting, upset
[2023-03-09 12:00] VITALS: PULSE 77
== END 2023-03-09 14:35 ==
LOC: ANHED 19:55 → ANH2MED 22:20
PROVIDERS: Nurse Practitioner; Admitting Provider Internal Medicine; Emergency Provider Emergency Medicine; Visit Provider Hospitalist
DX: R55 Syncope and collapse (principal); M25.061 Hemarthrosis, right knee; S80.01XA Contusion of right knee, initial encounter; S99.911A Unspecified injury of right ankle, initial encounter; W18.39XA Other fall on same level, initial encounter; R26.2 Difficulty in walking, not elsewhere classified; Z99.89 Dependence on other enabling machines and devices; K44.9 Diaphragmatic hernia without obstruction or gangrene; Z20.822 Contact with and (suspected) exposure to COVID-19; I11.9 Hypertensive heart disease without heart failure; M10.9 Gout, unspecified; M17.11 Unilateral primary osteoarthritis, right knee; I35.8 Other nonrheumatic aortic valve disorders; E66.9 Obesity, unspecified; Z68.41 Body mass index [BMI] 40.0-44.9, adult; M25.471 Effusion, right ankle; Z77.22 Contact with and (suspected) exposure to environmental tobacco smoke (acute) (chronic); Z79.899 Other long term (current) drug therapy
CPT/HCPCS: 36415; 71045; 73562; 73600; 73700; 80048; 80053; 81001; 82948; 83735; 85025; 87637; 93005; 93306; 96372; 97110; 97163; 97165; 97530; 97535; 99285; A9270; G0378; J1644

== ENCOUNTER 2023-04-04 17:48 | Emergency (ER) | payer MEDICARE, MEDICAID, SELFPAY ==
--- NOTE | ~2023-04-04 | XR_ITS ---
EXAMINATION: XR chest 2V Exam Date/Time: 04/04/2023 18:17 CDT HISTORY: Weakness Comparison: 03/04/2023. RESULT: Lines, tubes, and devices: None. Lungs and pleura: Clear. Cardiomediastinal silhouette: Stable. Moderate hiatal hernia. Other: No acute osseous or upper abdominal finding. IMPRESSION: No acute cardiopulmonary process. Reviewed, dictated and finalized at location K.
--- NOTE | ~2023-04-04 | CT_ITS ---
EXAMINATION: CT brain wo con DATE: 04/04/2023 19:48 INDICATION: syncope . TECHNIQUE: Computed tomography (CT) of the head was performed without intravenous contrast. The mA wa s adjusted according to patient size. Iterative reconstruction technique was employed. The dose-lengt h product was 605.33 mGy-cm. COMPARISON: None. FINDINGS: No acute intracranial hemorrhage or extra-axial fluid collection. No hydrocephalus, mass, or herniation. No acute ischemic infarct. Unremarkable dural venous sinus attenuation. No acute osseous abnormality. The aerated spaces are clear. Mild atrophy and chronic white matter change. Atherosclerotic intracranial calcification. Empty sella . IMPRESSION: No acute intracranial process. Reviewed, dictated and finalized at location K.
[2023-04-04 17:45] VITALS: BP 168/82; PULSE 86; RESP 14; TEMP 36.7; O2SAT 98
--- NOTE | 2023-04-04 17:54 | ECG_ITS ---
Measurements Intervals [place] Rate: 81 P: 52 [place]: 148 QRS: -12 QRSD: 78 T: 9 QT: 365 QTc: 424 Interpretive Statements SINUS RHYTHM MINIMAL VOLTAGE CRITERIA FOR LVH, CONSIDER NORMAL VARIANT [MEETS CRITERIA IN ONE OF: R(aVL), S(V1), R(V5), R(V5/V6)+S(V1)] COMPARED TO ECG 03/06/2023 14:52:14 NO SIGNIFICANT CHANGES Electronically Signed On 04-05-2023 15:54:55 CDT by Cris Casas M.D.
[2023-04-04 18:08] LABS: Basophils Absolute Auto 0.1 K/mm3 (0.0-0.1); Basophils Percent Auto 0.9 % (0.2-1.2); Eosinophils Absolute Auto 0.1 K/mm3 (0-0.3); Eosinophils Percent Auto 1.3 % (0-4.4); Hematocrit 33.4 % (37.0-47.0); Hemoglobin 10.4 g/dL (12.0-15.0); Lymphocytes Absolute Auto 1.33 K/mm3 (0.9-3.2); Lymphocytes Percent Auto 13.9 % (18.3-44.2); Mean Corpuscular HGB Conc 31.1 g/dl (32-36); Mean Corpuscular Hemoglobin 31.8 pg (26-34); Mean Corpuscular Volume 102.1 fl (80-100); Mean Platelet Volume 9.7 fl (7.4-10.4); Monocytes Percent Auto 10.1 % (2.6-8.5); Neutrophils Percent Auto 72.8 % (45.5-73.1); Nucleated Red Blood Cells Absolute Auto 0.1 K/mm3 (0.0-0.012); Nucleated Red Blood Cells Perc 0.6 % (0.0-0.2); Platelet Count Result 279 k/mm3 (150-375); Red Blood Count 3.27 M/mm3 (4.2-5.4); Red Cell Distribution Width 15.6 % (11.5-14.5); White Blood Count 9.6 K/mm3 (4.5-10.0)
[2023-04-04 18:16] LABS: Alanine Aminotransferase 22 U/L (6-35); Albumin Level 3.6 g/dL (3.5-5.1); Alkaline Phosphatase 116 U/L (38-126); Anion Gap 5 mmol/L (8-16); Aspartate Amino Transferase 33 U/L (14-36); Bilirubin,Total 0.7 mg/dL (0.2-1.3); Blood Urea Nitrogen 20 mg/dL (7-17); Calcium 8.7 mg/dL (8.4-10.2); Carbon Dioxide 30 mmol/L (22-30); Chloride 102 mmol/L (98-107); Estimated CRCL calculation 37 ml/min; Estimated Glomerular Filt Rate 44; Glucose 107 mg/dL (65-110); Potassium 4.5 mmol/L (3.4-5.0); Sodium 137 mmol/L (137-145)
[2023-04-04 19:16] VITALS: BP 168/115; PULSE 83; RESP 25; O2SAT 98
[2023-04-04 20:55] LABS: Add Urine Microscopic? NO; Appearance Urine Clear (Clear); Bilirubin Urine Negative (Negative); Blood Urine Negative (Negative); Color Urine Yellow (Yellow); Glucose Urine UA Negative (Negative); Ketones Urine Negative (Negative); Leukocyte Esterase Ur Negative LEU/UL (Negative); Nitrate Urine Negative (Negative); Protein Urine Negative (Negative); Urobilinogen Urine 0.2 mg/dL (<2.0)
--- NOTE | 2023-04-04 21:26 | ED.GENADULT ---
HPI - General Adult General Chief complaint: Weakness Stated complaint: dizzy/weak Time Seen by Provider: 04/04/23 19:08 History of Present Illness HPI narrative: Patient presents to the emergency department after syncopal event at rehab. Family states this is the third time it is happened during her stay there. Normally occurs after she has been active during therapy. Today event was longer and she was found unresponsive by staff. She denies history of this happening prior to going to rehab. When patient was living at home she ambulated with a walker. Then she fell and ended up with a large knee effusion. She has been in rehab strengthening her legs to be able to go home Related Data Home Medications Medication Instructions Recorded Confirmed allopurinol 100 mg tablet 100 mg PO DAILY 03/04/23 03/04/23 atorvastatin 40 mg tablet 40 mg PO DAILY 03/04/23 03/04/23 diltiazem HCl 30 mg tablet 30 mg PO DAILY 03/04/23 03/04/23 gabapentin 100 mg capsule 100 mg PO TID 03/04/23 03/04/23 (Neurontin) pantoprazole 40 mg tablet,delayed 40 mg PO DAILY 03/04/23 03/04/23 release acetaminophen 325 mg tablet (Pain mg 04/04/23 04/04/23 Reliever (acetaminophen)) Allergies Allergy/AdvReac Type Severity Reaction Status Date / Time azithromycin Allergy Anaphylaxis Verified 03/05/23 00:21 Penicillins Allergy Hives Verified 03/05/23 00:21 Review of Systems Review of Systems: Review of systems negative except for what is documented in the [facility] Past Medical History Medical History Gout HTN (hypertension) Obesity Family History Family History Father Hypertension Cerebrovascular accident Mother Hypertension Social History Social History Smoking status: Never smoker Second hand tobacco smoke exposure: Yes Alcohol intake: former Drinks per week: 0 Substance use: never Lack of Transportation: No Lack of Food: Never True Current Housing: I Have Housing Concerned About Future Housing: No Difficulty Paying Gas/Electric Bills: No Difficulty Paying for Meds: No Currently Unemployed: No Education: High School Diploma/GED Difficulty w/ Childcare or Family Care: No Spiritual care concerns: No Exam Narrative: GENERAL: Well-appearing, well-nourished, and in no acute distress. HEAD: Normocephalic, atraumatic. EYES: PERRLA and EOMI. ENT: Nares clear, no rhinorrhea or epistaxis. Mucous membranes moist. NECK: Supple. CHEST: Clear to auscultation. No respiratory distress. HEART: Regular rate and rhythm. ABDOMEN: Soft, nontender, nondistended. EXTREMITIES: Normal range of motion. No edema. SKIN: Warm, dry, no rash. NEURO: No focal deficits. Alert and oriented x3. PSYCH: Normal mood and affect. Course Course Emergency Course: Differential diagnosis includes but not limited to electrolyte abnormality, dehydration, urinary tract infection, cardiac arrhythmia, acute infection telemetry ordered due to syncope to evaluate for dysrhythmias. Evaluated by myself. Rhythm NSR Rate 78 2 1:31 PM urinalysis negative. Electrolytes unremarkable. Creatinine elevated to 1.4 from baseline of 0.9. Chest x-ray no infiltrates. Head CT no signs of ischemia or hemorrhage. Vital Signs Vital signs: Vital Signs Temperature 36.7 C 04/04/23 17:45 Pulse Rate 86 04/04/23 17:45 Respiratory Rate 14 04/04/23 17:45 Blood Pressure 168/82 H 04/04/23 17:45 Pulse Oximetry 98 04/04/23 17:45 Oxygen Delivery Room Air 04/04/23 17:45 Temperature 36.7 C 04/04/23 17:45 Pulse Rate 83 04/04/23 19:16 Respiratory Rate 25 H 04/04/23 19:16 Blood Pressure 168/115 H 04/04/23 19:16 Pulse Oximetry 98 04/04/23 19:16 Oxygen Delivery Room Air 04/04/23 17:45 Medical Decision Making MDM Narrative Medical decision
[2023-04-04] MEDS: SODIUM CHLORIDE 0.9% IV 1,000 ML 999 ML IV CONT (21:45)
[2023-04-05 00:16] VITALS: BP 165/112; PULSE 78; RESP 17; O2SAT 100
[2023-04-05 00:26] VITALS: BP 165/112; PULSE 78; RESP 17; O2SAT 100
== END 2023-04-05 00:48 ==
PROVIDERS: Student in an Organized Health Care Education/Training Program; Emergency Provider Emergency Medicine
DX: E86.0 Dehydration (principal); N28.9 Disorder of kidney and ureter, unspecified; I10 Essential (primary) hypertension
CPT/HCPCS: 36415; 70450; 71046; 80053; 81003; 85025; 93005; 96360; 96361; 99284; J7030

== ENCOUNTER 2023-05-02 19:04 | Observation (INO) | payer MEDICARE, MEDICAID, SELFPAY ==
--- NOTE | ~2023-05-02 | MR_ITS ---
MRI of the lumbar spine Clinical History: Cauda equina syndrome Technique: Axial T2-weighted images, and sagittal T1-weighted, T2-weighted, and T2 fat-sat images wer e acquired. Findings: There is no fracture or subluxation of the lumbar spine. Vertebral bodies maintain normal h eight and alignment. There are reactive marrow signal changes about the L5-S1 disc space due to under lying degenerative disc disease. At L1-L2 and L2-L3, there is no disc bulge or herniation. Minimal facet joint degenerative change pre sent. No spinal canal stenosis or neural foraminal narrowing at these levels. At L3-L4, there is minimal disc bulge with moderate facet arthropathy. No central canal stenosis or n eural foraminal narrowing. At L4-L5, diffuse disc bulge and severe facet arthropathy result in moderate central canal stenosis/t hecal sac compression. Neural foramina are preserved bilaterally. At L5-S1, there is disc bulge with moderate facet arthropathy. No bharati central canal stenosis. There is moderate to severe right neural foraminal narrowing, and minimal left neural foraminal narrowing. Paravertebral soft tissues are unremarkable. Impression: Moderate degenerative spondylosis at L4-L5 and L5-S1, as detailed above. Reviewed, dictated and finalized at location . 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
--- NOTE | ~2023-05-02 | XR_ITS ---
EXAMINATION: XR chest 1V portable Exam Date/Time: 05/02/2023 19:27 ZONING ENGINEER HISTORY: weakness, BILATERAL LEG SWELLING Comparison: 04/04/2023. RESULT: Lines, tubes, and devices: None. Lungs and pleura: Clear. Cardiomediastinal silhouette: Stable. Other: No acute osseous or upper abdominal finding. IMPRESSION: No acute cardiopulmonary process. Reviewed, dictated and finalized at location K. NG ENGINEER
[2023-05-02 19:01] VITALS: BP 138/64; PULSE 93; RESP 14; TEMP 36.6; O2SAT 99
--- NOTE | 2023-05-02 19:08 | ECG_ITS ---
Measurements Intervals Thayer Rate: 80 P: 37 RI: 145 QRS: -20 QRSD: 89 T: 10 QT: 358 QTc: 414 Interpretive Statements SINUS RHYTHM VOLTAGE CRITERIA FOR LVH BORDERLINE R WAVE PROGRESSION, ANTERIOR LEADS NONSPECIFIC T-WAVE ABNORMALITY- INF/HIGH LAT LEADS BORDERLINE ECG COMPARED TO ECG 04/04/2023 17:59:39 NO SIGNIFICANT CHANGES Electronically Signed On 05-02-2023 19:35:06 [employer]LL SHOP SUPERVISOR by Poncho Mata D.O.
--- NOTE | 2023-05-02 19:29 | ED.GENADULT ---
HPI - General Adult General Chief complaint: Weakness Stated complaint: GEN WKNS, BLE EDEMA Time Seen by Provider: 05/02/23 19:08 History of Present Illness HPI narrative: This is an 82-year-old female presenting ED for general weakness. Patient had a fall in early February. After several days in the hospital she was sent to a senior living for rehab. She had done well there until she went home 1 week ago. Since then the patient has been having significant difficulty walking. She typically walks with a walker. She says that her legs are too heavy. She feels that they are swollen. The patient lives alone but has been getting help from her daughter and family. she does note some dyspnea on exertion. She denies any recent falls chest pain abdominal pain urinary problems or GI issues. Related Data Home Medications Medication Instructions Recorded Confirmed allopurinol 100 mg tablet 100 mg PO DAILY 03/04/23 03/04/23 atorvastatin 40 mg tablet 40 mg PO DAILY 03/04/23 03/04/23 diltiazem HCl 30 mg tablet 30 mg PO DAILY 03/04/23 03/04/23 gabapentin 100 mg capsule 100 mg PO TID 03/04/23 03/04/23 (Neurontin) pantoprazole 40 mg tablet,delayed 40 mg PO DAILY 03/04/23 03/04/23 release acetaminophen 325 mg tablet (Pain mg 04/04/23 04/04/23 Reliever (acetaminophen)) Allergies Allergy/AdvReac Type Severity Reaction Status Date / Time azithromycin Allergy Anaphylaxis Verified 05/02/23 19:46 Penicillins Allergy Hives Verified 05/02/23 19:46 [facility] Past Medical History Medical History Gout HTN (hypertension) Obesity Family History Family History Father Hypertension Cerebrovascular accident Mother Hypertension Social History Social History Smoking status: Never smoker Second hand tobacco smoke exposure: Yes Alcohol intake: former Drinks per week: 0 Substance use: never Lack of Transportation: No Lack of Food: Never True Current Housing: I Have Housing Concerned About Future Housing: No Difficulty Paying Gas/Electric Bills: No Difficulty Paying for Meds: No Currently Unemployed: No Education: High School Diploma/GED Difficulty w/ Childcare or Family Care: No Spiritual care concerns: No Exam Narrative: APPEARANCE: No apparent distress. Head: atraumatic. EYES: EOMI, NOSE: Atraumatic NECK: Trachea midline RESPIRATORY: No increased rate of breathing, clear to auscultation CARDIOVASCULAR: RRR, Nonpitting edema of the lower extremities ABDOMINAL: Non-distended, obese, soft nontender MUSCULOSKELETAl: No obvious deformities NEURO: Alert. Moving 4/4 extremities SKIN:: Warm, dry. Normal color PSYCHIATRIC: Normal affect Course Vital Signs Vital signs: Vital Signs Temperature 98 F 05/02/23 19:01 Pulse Rate 93 05/02/23 19:01 Respiratory Rate 14 05/02/23 19:01 Blood Pressure 138/64 05/02/23 19:01 Pulse Oximetry 99 05/02/23 19:01 Oxygen Delivery Room Air 05/02/23 19:01 Temperature 98 F 05/02/23 19:01 Pulse Rate 93 05/02/23 19:01 Respiratory Rate 14 05/02/23 19:01 Blood Pressure 138/64 05/02/23 19:01 Pulse Oximetry 99 05/02/23 19:01 Oxygen Delivery Room Air 05/02/23 19:01 Medical Decision Making MDM Narrative Medical decision making narrative: -Course: 82-year-old female presenting to ED with difficulty ambulating at home. Workup was unremarkable. patient lives alone but is no longer capable of performing her activities of daily living/walking. She will be admitted to the hospital for PT OT eval/placement. -DDX includes but is not limited to: Dehydration, pneumonia, heart failure, lymphedema, peripheral edema, dependent edema, debility -Co-morbidities complicating care: morbid obesity, arthritis, gout, hypertension, neuropathy -Social determinants o
[2023-05-02 20:00] VITALS: BP 128/89; PULSE 86; RESP 15; O2SAT 99
[2023-05-02 20:00] LABS: Basophils Absolute Auto 0.1 K/mm3 (0.0-0.1); Basophils Percent Auto 0.9 % (0.2-1.2); Eosinophils Absolute Auto 0.2 K/mm3 (0-0.3); Eosinophils Percent Auto 2.9 % (0-4.4); Hematocrit 33.5 % (37.0-47.0); Hemoglobin 10.1 g/dL (12.0-15.0); Immature Granulocyte Absolute 0.06 K/mm3 (0.00-0.031); Immature Granulocyte Percent A 0.9 % (0-0.5); Lymphocytes Absolute Auto 1.53 K/mm3 (0.9-3.2); Lymphocytes Percent Auto 23.5 % (18.3-44.2); Mean Corpuscular HGB Conc 30.1 g/dl (32-36); Mean Corpuscular Volume 102.8 fl (80-100); Mean Platelet Volume 10.4 fl (7.4-10.4); Monocytes Absolute Auto 0.8 K/mm3 (0.1-0.6); Monocytes Percent Auto 12.6 % (2.6-8.5); Neutrophils Absolute Auto 3.8 K/mm3 (1.3-6.7); Neutrophils Percent Auto 59.2 % (45.5-73.1); Nucleated Red Blood Cells Absolute Auto 0.1 K/mm3 (0.0-0.012); Nucleated Red Blood Cells Perc 1.1 % (0.0-0.2); Platelet Count Result 302 k/mm3 (150-375); Red Blood Count 3.26 M/mm3 (4.2-5.4); Red Cell Distribution Width 16.3 % (11.5-14.5); White Blood Count 6.5 K/mm3 (4.5-10.0)
[2023-05-02 20:02] LABS: Alanine Aminotransferase 21 U/L (6-35); Albumin Level 3.8 g/dL (3.5-5.1); Alkaline Phosphatase 88 U/L (38-126); Anion Gap 4 mmol/L (8-16); Aspartate Amino Transferase 45 U/L (14-36); Bilirubin,Total 0.8 mg/dL (0.2-1.3); Blood Urea Nitrogen 20 mg/dL (7-17); Calcium 8.8 mg/dL (8.4-10.2); Carbon Dioxide 29 mmol/L (22-30); Chloride 107 mmol/L (98-107); Estimated CRCL calculation 51 ml/min; Estimated Glomerular Filt Rate > 60; Glucose 107 mg/dL (65-110); Potassium 4.3 mmol/L (3.4-5.0); Sodium 140 mmol/L (137-145)
[2023-05-02 20:09] LABS: NT Pro B Type Natriuretic Pept 380 pg/mL (19.9-100)
[2023-05-02 21:02] LABS: Add Urine Microscopic? YES; Appearance Urine Clear (Clear); Bacteria Urine None Seen /hpf; Bilirubin Urine Negative (Negative); Blood Urine Negative (Negative); Color Urine Dark Yellow (Yellow); Glucose Urine UA Negative (Negative); Hyaline Casts Urine Present /lpf; Ketones Urine Trace mg/dL (Negative); Leukocyte Esterase Ur Negative LEU/UL (Negative); Nitrate Urine Negative (Negative); Protein Urine Trace mg/dL (Negative); Specific Grav Ur 1.035 (1.001-1.035); Squamous Epithelial Cell Urine None seen /hpf (Few); WBC Urine 0-5 /hpf; pH Urine 5.5 (5.0-9.0)
[2023-05-02 22:00] VITALS: BP 139/86; PULSE 88; RESP 22; O2SAT 99
--- NOTE | 2023-05-02 22:06 | PM.IMHP ---
H&P: HPI History of Present Illness Date/Time: 05/02/23 22:06 Chief Complaint: Generalized weakness Narrative: This is an 82-year-old female with past medical history significant for gout, hypertension, morbid obesity. Patient recently discharged from [facility] comes to the emergency room due to generalized weakness unable to walk. Patient denies any fevers, rigors, chills, nausea, vomiting, cough, sputum production, pain or burning with urination, chest pain, shortness of breath, PND, orthopnea. Preliminary workup has been essentially nonrevealing. EXAMINATION:? XR chest 1V portable Exam Date/Time:? 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 Comparison:? 04/04/2023. RESULT: Lines, tubes, and devices:? None. Lungs and pleura:? Clear. Cardiomediastinal silhouette:? Stable. Other:? No acute osseous or upper abdominal finding. ? IMPRESSION: No acute cardiopulmonary process. Review of Systems Review of Systems: Generalized weakness, unable to walk Constitutional: Constitutional: Denies chills, Denies fever(s) and Reports weakness Eyes: Eyes: Denies change in vision ENT: Denies dysphagia and Denies odynophagia Cardiovascular: Cardiovascular: Denies chest pain, Denies radiating jaw, neck or arm pain and Denies palpitations Respiratory: Respiratory: Denies cough and Denies dyspnea Gastrointestinal: Gastrointestinal: Denies abdominal pain, Denies dyspepsia, Denies heartburn, Denies diarrhea, Denies nausea and Denies vomiting Genitourinary: Genitourinary: Denies dysuria Musculoskeletal: Musculoskeletal: Reports muscle weakness Integumentary/Breasts: Skin/Breast: Denies rash Neurologic: Denies focal weakness and Denies Sensory deficit (Neuro) Psychiatric: Psychiatric: Reports no additional psychiatric complaints and Reports as per HPI Endocrine: Endocrine: Denies cold intolerance, Denies flushing, Denies heat intolerance, Denies polyphagia, Denies polydipsia and Denies palpitations Hematologic/Lymphatic: Hematologic/Lymphatic: Reports no additional hematologic/lymphatic complaints and Reports as per HPI Allergic/Immunologic: Allergic/Immunologic: Reports no additional allergic/immunologic complaints and Reports as per HPI PMFSH Past Medical History Medical History Gout HTN (hypertension) Obesity Family History Family History Father Hypertension Cerebrovascular accident Mother Hypertension Social History Social History Smoking status: Never smoker Second hand tobacco smoke exposure: Yes Alcohol intake: never Drinks per week: 0 Substance use: never Lack of Transportation: No Lack of Food: Never True Current Housing: I Have Housing Concerned About Future Housing: No Difficulty Paying Gas/Electric Bills: No Difficulty Paying for Meds: No Currently Unemployed: No Education: Grade School Difficulty w/ Childcare or Family Care: No Spiritual care concerns: No Meds Home Medications and Allergies Home Medications Medication Instructions Recorded Confirmed Type allopurinol 100 mg tablet 200 mg PO DAILY 03/04/23 05/03/23 History atorvastatin 40 mg tablet 40 mg PO QPM 03/04/23 05/03/23 History diltiazem HCl 30 mg tablet 30 mg PO DAILY 03/04/23 05/03/23 History gabapentin 100 mg capsule 100 mg PO TID 03/04/23 05/03/23 History (Neurontin) pantoprazole 40 mg tablet,delayed 40 mg PO DAILY 03/04/23 05/03/23 History release Allergies Allergy/AdvReac Type Severity Reaction Status Date / Time azithromycin Allergy Anaphylaxis Verified 05/02/23 19:46 Penicillins Allergy Hives Verified 05/02/23 19:46 Vital Signs Vital Signs - 24 hr 05/02/23 19:01 Temperature 98 F Pulse Rate 93 Respiratory Rate 14 Blood Pressure 138/64 Pulse Oximetry 99 Oxygen Delivery R
[2023-05-03] VITALS: BP 150/80; PULSE 85; RESP 22; O2SAT 98
[2023-05-03 00:33] VITALS: BMI 41.5
[2023-05-03 00:38] VITALS: BP 143/57; PULSE 85; RESP 18; TEMP 36.2; O2SAT 99
--- NOTE | 2023-05-03 02:31 | ADMGEN ---
This patient, Henna Hogan, was admitted to 3 Med Surg Room 306-02. Patient/family oriented to hospital policies and general routines including ID bracelet, bed and alarms, visiting hours, pain management, procedures, bathroom and other care routines, personal items, smoking policy, room service/diet, and visiting hours. Information on how to activate the Rapid Response Team has been discussed. Patient/Family are encouraged to report perceived risks to care and to ask questions if they do not understand what they are told or what they should do.
[2023-05-03 06:00] VITALS: BP 139/90; PULSE 91; RESP 18; TEMP 36.9; O2SAT 99
[2023-05-03 08:00] VITALS: O2SAT 99
--- NOTE | 2023-05-03 12:00 | PM.IMPN ---
Progress Note: A&P Assessment and Plan (1) Adult failure to thrive: Code(s): R62.7 - Adult failure to thrive Status: Acute Assessment and Plan: Admit to regular medical floor PT/OT consult, care coord c/s Patient will likely need placement at a detention Check MRI lumbar to r/o nerve impingement/cauda equina/disc pathology causing spinal cord compression, etc (2) Lymphedema: Code(s): I89.0 - Lymphedema, not elsewhere classified Status: Acute Assessment and Plan: Unchanged (3) Right knee DJD: Code(s): M17.11 - Unilateral primary osteoarthritis, right knee Status: Acute Assessment and Plan: Tylenol p.r.n. (4) HTN (hypertension): Qualifiers: Hypertension type: primary hypertension Qualified Code(s): I10 - Essential (primary) hypertension Code(s): I10 - Essential (primary) hypertension Status: Acute Assessment and Plan: Blood pressure reviewed 05/03 Continue home medications Plan DVT prophylaxis with SCDs GI prophylaxis with PPI Code status full code Subjective Date/time seen: 05/03/23 12:00 Interval history: 82-year-old female with history of gout, hypertension, obesity, recently discharged from a nursing facility presenting with generalized weakness currently being treated for failure to thrive and likely placement. No overnight events noted. No chest pain or shortness of breath. No nausea, vomiting or diarrhea. No fevers or chills. She is c/o progressively worsening LE weakness, numbness and tingling over the last 2 weeks. Denies bowel/bladder changes, no saddle anesthesia. Review of Systems Review of Systems: 12 point review of systems was assessed and was negative except as noted in the HPI Exam Narrative: General: No acute distress, alert and oriented per baseline HEENT: Atraumatic, normocephalic, mucous membranes moist CV: Regular rate and rhythm, S1, S2 Lungs: Clear to auscultation bilaterally, no rales or crackles noted, no wheezes, good air entry Abdomen: Soft, nontender, nondistended Extremities: Normal to inspection, significant lymphedema B/L LE Skin: No rashes noted, no lesions or wounds seen Psych: Euthymic, normal affect Objective Data Vital Signs Vital Signs: Vital Signs - 24 hr 05/02/23 19:01 05/02/23 20:00 05/02/23 20:00 Temperature 98 F Pulse Rate 93 86 86 Respiratory Rate 14 15 Blood Pressure 138/64 128/89 Pulse Oximetry 99 99 Oxygen Delivery Room Air 05/02/23 22:00 05/03/23 00:00 05/03/23 00:38 Temperature 97.2 F L Pulse Rate 88 85 85 Respiratory Rate 22 H 22 H 18 Blood Pressure 139/86 150/80 H 143/57 H Pulse Oximetry 99 98 99 Oxygen Delivery 05/03/23 02:27 05/03/23 06:00 05/03/23 08:00 Temperature 98.5 F Pulse Rate 91 Respiratory Rate 18 Blood Pressure 139/90 Pulse Oximetry 99 99 Oxygen Delivery Room Air Room Air Intake/Output Intake/Output: Intake & Output 05/01/23 05/01/23 05/02/23 05/03/23 00:59 23:59 23:59 23:59 Intake Total 240 Balance 240 Meds/Results Radiology Results: ITS Impressions Chest X-Ray 05/02/23 19:45 IMPRESSION: No acute cardiopulmonary process. Labs Labs: Laboratory Results - last 24 hr 05/02/23 05/02/23 05/02/23 19:45 19:45 19:45 WBC 6.5 RBC 3.26 L Hgb 10.1 L Hct 33.5 L MCV 102.8 H MCH 31.0 MCHC 30.1 L RDW 16.3 H Plt Count 302 MPV 10.4 Immature Gran % (Auto) 0.9 H Neut % (Auto) 59.2 Lymph % (Auto) 23.5 [place] % (Auto) 12.6 H Eos % (Auto) 2.9 Baso % (Auto) 0.9 Lymph # (Auto) 1.53 [place] # (Auto) 0.8 H Eos # (Auto) 0.2 Baso # (Auto) 0.1 Abs Immat Gran (auto) 0.06 H Absolute Neuts (auto) 3.8 Absolute Nucleated RBC 0.1 H Nucleated RBC % 1.1 H Sodium Cancelled 140 Potassium Cancelled 4.3 Chloride Cancelled Carbon Dioxide Anion Gap BUN Crea
[2023-05-03 13:57] VITALS: BP 142/89; PULSE 84; RESP 20; TEMP 35.6; O2SAT 99
[2023-05-03] MEDS: ATORVASTATIN 40 MG TABLET PO (16:30)
[2023-05-03] MEDS: GABAPENTIN 100 MG CAPSULE PO (16:30)
[2023-05-03 22:00] VITALS: BP 145/67; PULSE 84; RESP 14; TEMP 36.4; O2SAT 99
[2023-05-04 05:54] LABS: Basophils Absolute Auto 0.1 K/mm3 (0.0-0.1); Basophils Percent Auto 1.3 % (0.2-1.2); Eosinophils Absolute Auto 0.2 K/mm3 (0-0.3); Eosinophils Percent Auto 3.9 % (0-4.4); Hematocrit 33.3 % (37.0-47.0); Hemoglobin 10.1 g/dL (12.0-15.0); Immature Granulocyte Absolute 0.05 K/mm3 (0.00-0.031); Immature Granulocyte Percent A 0.9 % (0-0.5); Lymphocytes Absolute Auto 1.35 K/mm3 (0.9-3.2); Lymphocytes Percent Auto 25.2 % (18.3-44.2); Mean Corpuscular HGB Conc 30.3 g/dl (32-36); Mean Corpuscular Hemoglobin 31.1 pg (26-34); Mean Corpuscular Volume 102.5 fl (80-100); Mean Platelet Volume 10.1 fl (7.4-10.4); Monocytes Absolute Auto 0.7 K/mm3 (0.1-0.6); Monocytes Percent Auto 13.5 % (2.6-8.5); Neutrophils Percent Auto 55.2 % (45.5-73.1); Platelet Count Result 259 k/mm3 (150-375); Red Blood Count 3.25 M/mm3 (4.2-5.4); Red Cell Distribution Width 16.2 % (11.5-14.5); White Blood Count 5.4 K/mm3 (4.5-10.0)
[2023-05-04 06:00] VITALS: BP 129/50; PULSE 83; RESP 14; TEMP 36.1; O2SAT 95
[2023-05-04 06:15] LABS: Alanine Aminotransferase 18 U/L (6-35); Albumin Level 3.3 g/dL (3.5-5.1); Alkaline Phosphatase 95 U/L (38-126); Anion Gap 3 mmol/L (8-16); Aspartate Amino Transferase 27 U/L (14-36); Bilirubin,Total 0.8 mg/dL (0.2-1.3); Blood Urea Nitrogen 10 mg/dL (7-17); Calcium 8.5 mg/dL (8.4-10.2); Carbon Dioxide 28 mmol/L (22-30); Chloride 107 mmol/L (98-107); Estimated CRCL calculation 61 ml/min; Estimated Glomerular Filt Rate > 60; Glucose 85 mg/dL (65-110); Potassium 3.5 mmol/L (3.4-5.0); Sodium 138 mmol/L (137-145)
[2023-05-04 08:00] VITALS: O2SAT 95
[2023-05-04 08:08] LABS: Iron 46 ug/dL (37-170)
[2023-05-04 08:18] LABS: Percent Iron Saturation 18 % (20-50)
[2023-05-04] MEDS: allopurinoL 100 MG TABLET 200 MG PO (08:29)
[2023-05-04] MEDS: GABAPENTIN 100 MG CAPSULE PO ×3 (08:30→16:40)
[2023-05-04] MEDS: PANTOPRAZOLE 40 MG TABLET PO (08:30)
[2023-05-04] MEDS: dilTIAZem HCL 30 MG TABLET PO (08:30)
[2023-05-04 09:17] LABS: Folic Acid > 20.0 ng/mL (2.76->20)
--- NOTE | 2023-05-04 11:24 | PM.IMPN ---
Progress Note: A&P Assessment and Plan (1) Adult failure to thrive: Code(s): R62.7 - Adult failure to thrive Status: Acute Assessment and Plan: Admitted to regular medical floor PT/OT consulted, care coord c/s Patient will likely need placement at a long term MRI lumbar ordered to r/o nerve impingement/cauda equina/disc pathology causing spinal cord compression, etc (2) Lymphedema: Code(s): I89.0 - Lymphedema, not elsewhere classified Status: Acute Assessment and Plan: Unchanged (3) Right knee DJD: Code(s): M17.11 - Unilateral primary osteoarthritis, right knee Status: Acute Assessment and Plan: Tylenol p.r.n. (4) HTN (hypertension): Qualifiers: Hypertension type: primary hypertension Qualified Code(s): I10 - Essential (primary) hypertension Code(s): I10 - Essential (primary) hypertension Status: Acute Assessment and Plan: Blood pressure reviewed 05/04 BP well controlled Continue to follow (5) Anemia: Code(s): D64.9 - Anemia, unspecified Status: Acute Assessment and Plan: Hgb low mostly in the 9-10 range. Macrocytic. B12, foalte and TSH normal. TIBC slightly low with low TSat at 18% but ferritin elevated. Follow periodically. Plan DVT prophylaxis with SCDs GI prophylaxis with PPI Code status full code Subjective Date/time seen: 05/04/23 11:24 Interval history: 82-year-old female with history of gout, hypertension, obesity, recently discharged from a nursing facility presenting with generalized weakness currently being treated for failure to thrive and likely placement. Assuming care. Chart reviewed. Complains of right knee pain. No Cp or SOB. Up to the chair but requires the lift. She has chronic knee jaun, gout and peripheral neuropathy. Exam Narrative: AF 96.9 129/50 83 14 95% ra Gen - NARD Chest - decreased BS in the bases o/w clear. CV - RRR S1/S2 Abd - Soft, NT/ND, Positive BS Ext - significant lymphedema B/L LE. Pain with right knee flexion but exam difficult due to edema Neuro - Alert and oriented. Nonfocal exam. Psych - Nml mood and affect Skin - Warm and dry Objective Data Vital Signs Vital Signs: Vital Signs - 24 hr 05/03/23 13:57 05/03/23 14:49 05/03/23 20:00 Temperature 96.1 F L Pulse Rate 84 Respiratory Rate 20 Blood Pressure 142/89 H Pulse Oximetry 99 Oxygen Delivery Room Air Room Air 05/03/23 22:00 05/04/23 06:00 05/04/23 08:00 Temperature 97.5 F L 96.9 F L Pulse Rate 84 83 Respiratory Rate 14 14 Blood Pressure 145/67 H 129/50 L Pulse Oximetry 99 95 95 Oxygen Delivery Room Air Intake/Output Intake/Output: Intake & Output 05/01/23 05/02/23 05/03/23 05/04/23 23:59 23:59 23:59 23:59 Intake Total 720 390 Balance 720 390 Meds/Results Medications: Active Medications Generic Name Dose Route Start Last Admin Trade Name Freq PRN Reason Stop Dose Admin Acetaminophen 650 mg 05/04/23 07:45 Acetaminophen 325 Mg Tablet PO Q6H PRN Mild Pain (1-3) or Fever Allopurinol 200 mg 05/04/23 09:00 05/04/23 08:29 Allopurinol 100 Mg Tablet PO 200 mg DAILY DARCIE Administration Atorvastatin Calcium 40 mg 05/03/23 18:00 05/03/23 16:30 Atorvastatin 40 Mg Tablet PO 40 mg QPM DARCIE Administration Diltiazem HCl 30 mg 05/04/23 09:00 05/04/23 08:30 Diltiazem Hcl 30 Mg Tablet PO 30 mg DAILY DARCIE Administration Gabapentin 100 mg 05/03/23 13:00 05/04/23 08:30 Gabapentin 100 Mg Capsule PO 100 mg TID DARCIE Administration Pantoprazole Sodium 40 mg 05/04/23 09:00 05/04/23 08:30 Pantoprazole 40 Mg Tablet PO 40 mg DAILY DARCIE Administration Radiology Results: ITS Impressions Chest X-Ray 05/02/23 19:45 IMPRESSION: No acute cardiopulmonary process. Labs Labs: Laboratory Results - last 24 hr 05/04/23 05/04/23 05:30 05:33 WB
[2023-05-04 14:00] VITALS: BP 141/67; PULSE 87; RESP 18; TEMP 36; O2SAT 99
[2023-05-04] MEDS: ATORVASTATIN 40 MG TABLET PO (16:40)
[2023-05-04 20:38] VITALS: BP 130/60; PULSE 87; RESP 16; TEMP 36.3; O2SAT 95
[2023-05-05 04:38] VITALS: BP 126/49; PULSE 80; RESP 16; TEMP 36.2; O2SAT 98
[2023-05-05 05:54] LABS: Basophils Absolute Auto 0.1 K/mm3 (0.0-0.1); Eosinophils Absolute Auto 0.2 K/mm3 (0-0.3); Eosinophils Percent Auto 3.1 % (0-4.4); Hematocrit 30.9 % (37.0-47.0); Hemoglobin 9.4 g/dL (12.0-15.0); Immature Granulocyte Absolute 0.08 K/mm3 (0.00-0.031); Immature Granulocyte Percent A 1.4 % (0-0.5); Lymphocytes Absolute Auto 1.75 K/mm3 (0.9-3.2); Lymphocytes Percent Auto 30.4 % (18.3-44.2); Mean Corpuscular HGB Conc 30.4 g/dl (32-36); Mean Corpuscular Hemoglobin 31.1 pg (26-34); Mean Corpuscular Volume 102.3 fl (80-100); Mean Platelet Volume 10.6 fl (7.4-10.4); Monocytes Absolute Auto 0.8 K/mm3 (0.1-0.6); Monocytes Percent Auto 13.9 % (2.6-8.5); Neutrophils Absolute Auto 2.9 K/mm3 (1.3-6.7); Neutrophils Percent Auto 50.2 % (45.5-73.1); Nucleated Red Blood Cells Perc 0.5 % (0.0-0.2); Platelet Count Result 253 k/mm3 (150-375); Red Blood Count 3.02 M/mm3 (4.2-5.4); Red Cell Distribution Width 16.4 % (11.5-14.5); White Blood Count 5.8 K/mm3 (4.5-10.0)
[2023-05-05 06:06] LABS: Alanine Aminotransferase 17 U/L (6-35); Alkaline Phosphatase 87 U/L (38-126); Anion Gap 4 mmol/L (8-16); Aspartate Amino Transferase 26 U/L (14-36); Bilirubin,Total 0.7 mg/dL (0.2-1.3); Blood Urea Nitrogen 14 mg/dL (7-17); Calcium 8.3 mg/dL (8.4-10.2); Carbon Dioxide 29 mmol/L (22-30); Chloride 107 mmol/L (98-107); Estimated CRCL calculation 50 ml/min; Estimated Glomerular Filt Rate > 60; Glucose 76 mg/dL (65-110); Potassium 3.7 mmol/L (3.4-5.0); Sodium 140 mmol/L (137-145)
[2023-05-05 08:00] VITALS: O2SAT 98
[2023-05-05] MEDS: ASCORBIC ACID 250 MG TABLET PO (08:59)
[2023-05-05] MEDS: CHOLECALCIFEROL 400 UNITS TABLET (VIT D) PO (08:59)
[2023-05-05] MEDS: allopurinoL 100 MG TABLET 200 MG PO (08:59)
[2023-05-05] MEDS: dilTIAZem HCL 30 MG TABLET PO (08:59)
[2023-05-05] MEDS: GABAPENTIN 100 MG CAPSULE PO ×3 (09:00→17:32)
[2023-05-05] MEDS: THERAPEUTIC MULTIVITAMINS/MINERALS TAB (*BKC) 1 TABLET PO (09:03)
[2023-05-05] MEDS: OMEGA 3 POLYUNSAT FATTY ACIDS 1 GM CAP PO (09:03)
[2023-05-05] MEDS: PANTOPRAZOLE 40 MG TABLET PO (09:03)
[2023-05-05 14:00] VITALS: BP 118/74; PULSE 81; RESP 16; TEMP 36.2; O2SAT 100
[2023-05-05] MEDS: ACETAMINOPHEN 325 MG TABLET 650 MG PO ×2 (14:33→20:39)
--- NOTE | 2023-05-05 14:39 | PM.IMPN ---
Progress Note: A&P Assessment and Plan (1) Adult failure to thrive: Code(s): R62.7 - Adult failure to thrive Status: Acute Assessment and Plan: Admitted to regular medical floor. PT/OT consulted, care coord c/s MRI lumbar showing moderate degenerative spondylosis at L4-5 and L5-S1. Planning for SNF placement (2) Lymphedema: Code(s): I89.0 - Lymphedema, not elsewhere classified Status: Acute Assessment and Plan: Unchanged (3) Right knee DJD: Code(s): M17.11 - Unilateral primary osteoarthritis, right knee Status: Acute Assessment and Plan: Tylenol p.r.n. (4) HTN (hypertension): Qualifiers: Hypertension type: primary hypertension Qualified Code(s): I10 - Essential (primary) hypertension Code(s): I10 - Essential (primary) hypertension Status: Acute Assessment and Plan: Blood pressure reviewed 05/05 BP well controlled Continue to follow (5) Anemia: Code(s): D64.9 - Anemia, unspecified Status: Acute Assessment and Plan: Hgb low mostly in the 9-10 range. Macrocytic. B12, foalte and TSH normal. TIBC slightly low with low TSat at 18% but ferritin elevated. Follow periodically. Plan DVT prophylaxis with SCDs GI prophylaxis with PPI Code status full code Subjective Date/time seen: 05/05/23 14:39 Interval history: 82-year-old female with history of gout, hypertension, obesity, recently discharged from a nursing facility presenting with generalized weakness currently being treated for failure to thrive and likely placement. No problems overnight. No CP or SOB. Able to walk with walker to the chair Exam Narrative: AF 97.2 118/74 81 16 100% ra Gen - NARD Chest - CTA bilaterally CV - RRR S1/S2 Abd - Soft, NT/ND, Positive BS Ext - significant lymphedema bilateral LE Psych - Nml mood and affect Skin - Warm and dry Objective Data Vital Signs Vital Signs: Vital Signs - 24 hr 05/04/23 20:38 05/04/23 20:00 05/05/23 04:38 Temperature 97.4 F L 97.2 F L Pulse Rate 87 80 Respiratory Rate 16 16 Blood Pressure 130/60 126/49 L Pulse Oximetry 95 98 Oxygen Delivery Room Air 05/05/23 08:00 Temperature Pulse Rate Respiratory Rate Blood Pressure Pulse Oximetry 98 Oxygen Delivery Room Air Intake/Output Intake/Output: Intake & Output 05/02/23 05/03/23 05/04/23 05/05/23 23:59 23:59 23:59 23:59 Intake Total 720 750 540 Output Total 0 Balance 720 750 540 Meds/Results Medications: Active Medications Generic Name Dose Route Start Last Admin Trade Name Shruthi PRN Reason Stop Dose Admin Acetaminophen 650 mg 05/04/23 07:45 05/05/23 14:33 Acetaminophen 325 Mg Tablet PO 650 mg Q6H PRN Administration Mild Pain (1-3) or Fever Allopurinol 200 mg 05/04/23 09:00 05/05/23 08:59 Allopurinol 100 Mg Tablet PO 200 mg DAILY DARCIE Administration Ascorbic Acid 250 mg 05/05/23 09:00 05/05/23 08:59 Ascorbic Acid 250 Mg Tablet PO 250 mg DAILY DARCIE Administration Atorvastatin Calcium 40 mg 05/03/23 18:00 05/04/23 16:40 Atorvastatin 40 Mg Tablet PO 40 mg QPM DARCIE Administration Diltiazem HCl 30 mg 05/04/23 09:00 05/05/23 08:59 Diltiazem Hcl 30 Mg Tablet PO 30 mg DAILY DARCIE Administration Fish Oil 1 gm 05/05/23 09:00 05/05/23 09:03 [place] 3 Polyunsat Fatty Acids 1 Gm Cap PO 1 gm QAM DARCIE Administration Gabapentin 100 mg 05/03/23 13:00 05/05/23 13:14 Gabapentin 100 Mg Capsule PO 100 mg TID DARCIE Administration Multivitamins/Calcium 1 tablet 05/05/23 09:00 05/05/23 09:03 Therapeutic Multivitamins/Minerals Tab (*Bkc) PO 1 tablet QAM DARCIE Administration Pantoprazole Sodium 40 mg 05/04/23 09:00 05/05/23 09:03 Pantoprazole 40 Mg Tablet PO 40 mg DAILY DARCIE Administration Vitamin D 400 units 05/05/23 09:00 05/05/23 08:59 Cholecalciferol 400 Units Tablet (Vit D) P
[2023-05-05] MEDS: ATORVASTATIN 40 MG TABLET PO (17:32)
[2023-05-05 20:48] VITALS: BP 137/76; PULSE 80; RESP 18; TEMP 36.2; O2SAT 98
[2023-05-06 05:15] VITALS: BP 118/65; PULSE 85; RESP 18; TEMP 37.2; O2SAT 98
[2023-05-06] MEDS: THERAPEUTIC MULTIVITAMINS/MINERALS TAB (*BKC) 1 TABLET PO (08:51)
[2023-05-06] MEDS: GABAPENTIN 100 MG CAPSULE PO ×3 (08:51→17:47)
[2023-05-06] MEDS: PANTOPRAZOLE 40 MG TABLET PO (08:51)
[2023-05-06] MEDS: ASCORBIC ACID 250 MG TABLET PO (08:51)
[2023-05-06] MEDS: CHOLECALCIFEROL 400 UNITS TABLET (VIT D) PO (08:51)
[2023-05-06] MEDS: allopurinoL 100 MG TABLET 200 MG PO (08:51)
[2023-05-06] MEDS: OMEGA 3 POLYUNSAT FATTY ACIDS 1 GM CAP PO (08:51)
[2023-05-06] MEDS: dilTIAZem HCL 30 MG TABLET PO (08:51)
[2023-05-06 14:00] VITALS: BP 122/46; PULSE 86; RESP 16; TEMP 36.8; O2SAT 97
--- NOTE | 2023-05-06 14:24 | PM.DS ---
DS: Admitting Diagnosis Discharge Date 05/06/23 Admitting Diagnosis Generalized weakness DS: Discharge Diagnosis Discharge Diagnosis (1) Adult failure to thrive: Code(s): R62.7 - Adult failure to thrive Status: Acute (2) Lymphedema: Code(s): I89.0 - Lymphedema, not elsewhere classified Status: Acute (3) Right knee DJD: Code(s): M17.11 - Unilateral primary osteoarthritis, right knee Status: Acute (4) HTN (hypertension): Qualifiers: Hypertension type: primary hypertension Qualified Code(s): I10 - Essential (primary) hypertension Code(s): I10 - Essential (primary) hypertension Status: Acute (5) Anemia: Code(s): D64.9 - Anemia, unspecified Status: Acute DS: Summary Hospital Course Reason for hospitalization: 82-year-old female with history of gout, hypertension, obesity, recently discharged from a nursing facility presenting with generalized weakness currently being treated for failure to thrive and likely placement. Please see H&P for details. Hospital Course: Patient presents emergency room with complaints of weakness. EKG showed normal sinus rhythm with LVH. No significant change from prior. Chest x-ray was clear. White count and platelet count were normal. She did have a macrocytic anemia but hemoglobin was stable and within her baseline in the 9-10 range. Her macrocytosis is chronic. B12, folate and TSH levels were normal. Iron studies were more consistent with anemia of chronic disease. LFTs were within normal limits. Electrolytes were within normal limits. UA had 6-10 red cells but negative for blood and only trace ketones. Her knee pain was treated with Tylenol. MRI of the lumbar spine showed moderate degenerative spondylosis. Please see report for details. She worked with PT and OT. She was able to stand with a walker and take a few steps. She was accepted at a group home facility for further therapy. She overall did well was able discharged on 05/06/2023. Status at Discharge Cognitive/behavioral status at discharge: stable Time Spent with Patient Time attestation: Total time spent providing and/or coordinating discharge services: 35 minutes Time spent: Greater than 30 minutes Exam Narrative: AF 98.9 118/65 85 18 98% ra Gen - NARD Chest - CTA bilaterally CV - RRR S1/S2 Abd - Soft, NT/ND, Positive BS Ext - significant lymphedema bilateral LE Psych - Nml mood and affect Skin - Warm and dry Discharge Plan Discharge Attending physician on discharge: Praveen Galdamez Discharging Clinician: Praveen Galdamez Anticipated Discharge Date/Time: 05/06/23 14:30 Patient Disposition: SNF Activity: as tolerated Diet: regular Discharge Instructions: Take precautions to avoid falls. Rise slowly from a lying or sitting position. Pause before standing or walking. Contact the doctor if the patient has any lightheadedness with standing or other worrisome symptoms. Avoid NSAIDs (ibuprofen, naproxen, Aleve). Tylenol is safe to take. Follow-up with the provider at the facility. Thank you for using [facility] for your health care needs. Stand Alone Forms: General Discharge Information Follow-up/Referrals: Slava,Robert Gregg MD [Primary Care Provider] - Other Discharge Medications: Continued allopurinol 100 mg tablet 200 mg PO DAILY gabapentin [Neurontin] 100 mg Capsule 100 mg PO TID atorvastatin 40 mg tablet 40 mg PO QPM pantoprazole 40 mg tablet,delayed release (DR/EC) 40 mg PO DAILY diltiazem HCl 30 mg tablet 30 mg PO DAILY Date of admission: 05/03/23 14:48 Primary Care Provider: SlavaRobert Admitting Provider: Gabbie Be V. Attending physician on admission: Gabbie Be V. Condition: Stable
[2023-05-06 16:21] LABS: SARS-CoV-2 RNA PCR Negative (Negative)
[2023-05-06] MEDS: ATORVASTATIN 40 MG TABLET PO (17:47)
== END 2023-05-06 19:58 ==
LOC: ANHED 22:16 → ANH3MEDSUR 05-03 00:06
PROVIDERS: Emergency Medicine; Student in an Organized Health Care Education/Training Program; Admitting Provider Internal Medicine; Emergency Provider Emergency Medicine; PCP Internal Medicine Gastroenterology; Visit Provider Internal Medicine
DX: R62.7 Adult failure to thrive (principal); I89.0 Lymphedema, not elsewhere classified; M17.11 Unilateral primary osteoarthritis, right knee; I10 Essential (primary) hypertension; D64.9 Anemia, unspecified; R53.1 Weakness; R26.2 Difficulty in walking, not elsewhere classified; Z99.89 Dependence on other enabling machines and devices; R06.09 Other forms of dyspnea; M10.9 Gout, unspecified; M47.817 Spondylosis without myelopathy or radiculopathy, lumbosacral region; M47.816 Spondylosis without myelopathy or radiculopathy, lumbar region; R94.31 Abnormal electrocardiogram [ECG] [EKG]; E66.01 Morbid (severe) obesity due to excess calories; Z68.41 Body mass index [BMI] 40.0-44.9, adult
CPT/HCPCS: 36415; 71045; 72148; 80053; 81001; 82607; 82728; 82746; 83540; 83550; 83880; 84443; 85025; 87635; 93005; 97110; 97161; 97166; 97530; 97535; 99285; A9270; G0378